=== PATIENT | male | born 1950 | race Caucasian/White ===

== ENCOUNTER 2020-02-28 23:29 | Emergency (ER) | payer MEDICARE, SELFPAY ==
--- NOTE | 2020-02-28 23:20 | ECG_ITS ---
APPROVED REPORT Exam: Resting ECG HR:63 bpm ECG Measurements Heart Rate 63 AXES VT 126 P 76 QRSd 90 QRS 46 QT 386 T 72 QTc 395 Conclusion Sinus rhythm with marked sinus arrhythmia Otherwise normal ECG Electronically signed by : Eduardo Lanza, 03/03/2020 10:23:19
[2020-02-28 23:25] VITALS: BP 154/95; PULSE 68; RESP 16; TEMP 36.8; O2SAT 97; BMI 17.2
--- NOTE | 2020-02-28 23:32 | XR_ITS ---
PROCEDURE: XR CHEST 2V CLINICAL HISTORY: chest pain COMPARISON: CT CT ANGIO CHEST from 02/29/2020 FINDINGS: The cardiomediastinal silhouette and pulmonary vascularity are within normal limits. COPD changes. No lobar consolidation or collapse. Degenerative change thoracic with mild kyphosis IMPRESSION: COPD, no acute finding Dictated by: Randy Granados MD 02/29/2020 06:12 Randy Granados MD in [facility] 02/29/2020 06:12
[2020-02-28 23:44] LABS: Basophils % 0.6 % (0.1-2.0); Eosinophils # 0.1 K/mm3 (0.0-0.4); Eosinophils % 1.5 % (0.1-12.0); Hematocrit 48.4 % (42.0-52.0); Hemoglobin 15.4 g/dL (14.1-18.0); Lymphocytes # 1.8 K/mm3 (0.7-4.5); Lymphocytes % 29.9 % (10-50); Mean Corpuscular HGB Conc 31.7 g/dL (31.8-35.4); Mean Corpuscular Hemoglobin 28.9 pg (27.0-31.2); Mean Corpuscular Volume 91.1 fl (80-94); Mean Platelet Volume 7.8 fl (7.4-10.4); Monocytes # 0.6 K/mm3 (0.1-1.0); Monocytes % 9.4 % (1.7-9.3); Neutrophils # 3.6 K/mm3 (1.8-7.8); Neutrophils % 58.7 % (37.0-80.0); Platelet Count 178 K/mm3 (142-424); Red Blood Count 5.31 M/mm3 (4.60-6.20); Red Cell Distribution Width 12.7 % (11.5-17.5); White Blood Count 6.1 K/mm3 (4.8-10.8)
[2020-02-28 23:48] LABS: Chloride 104 mmol/L (98-107); Sodium 139 mmol/L (136-145)
--- NOTE | 2020-02-28 23:48 | HMH.EDCP ---
ED Disposition Clinical Impression: Atypical chest pain, Tobacco use COPD (chronic obstructive pulmonary disease) Qualifiers: COPD type: unspecified COPD Qualified Code(s): J44.9 - Chronic obstructive pulmonary disease, unspecified Disposition: Home, Self-Care Condition on Discharge: Good Instructions: DI for Atypical Chest Pain Additional Instructions: please follow up with your pcp Referrals: Provider,Referral, [Primary Care Provider] - - Critical Care Critical Care Time: No Attestation: On , the high probability of a clinically significant, sudden or life threatening deterioration of the following system(s) required my full and direct attention, intervention and personal management. The time I documented below is in addition to time spent performing reported procedures but includes the following listed in this critical care notation. Medical Decision Making - Medical Records Medical records reviewed: Yes: I reviewed the patient's medical records. - Todd Inquiry Pt receiving controlled substance: No Vital Signs: 02/28/20 23:25 02/29/20 00:00 02/29/20 00:45 Temperature 98.2 F Temperature Source Oral Pulse Rate [Left Radial] 68 66 72 Respiratory Rate 16 17 16 Blood Pressure [Right Arm] 154/95 H 127/68 143/74 H Blood Pressure Mean [Right Arm] 114 87 97 Blood Pressure Source [Right Arm] Automatic Cuff Automatic Cuff Automatic Cuff Blood Pressure Position [Right Arm] Sitting Supine Sitting 02 Sat by Pulse Oximetry 97 98 98 Oxygen Delivery Method Room Air Room Air Room Air 02/29/20 01:30 02/29/20 02:00 02/29/20 02:30 Temperature Temperature Source Pulse Rate [Left Radial] 69 66 66 Respiratory Rate 16 17 17 Blood Pressure [Right Arm] 132/70 128/75 125/72 Blood Pressure Mean [Right Arm] 90 92 89 Blood Pressure Source [Right Arm] Automatic Cuff Automatic Cuff Automatic Cuff Blood Pressure Position [Right Arm] Sitting Supine Supine 02 Sat by Pulse Oximetry 96 99 98 Oxygen Delivery Method Room Air Room Air Room Air 02/29/20 03:00 02/29/20 03:30 02/29/20 04:00 Temperature Temperature Source Pulse Rate [Left Radial] 66 66 71 Respiratory Rate 18 17 18 Blood Pressure [Right Arm] 119/71 127/71 135/59 L Blood Pressure Mean [Right Arm] 87 89 84 Blood Pressure Source [Right Arm] Automatic Cuff Automatic Cuff Automatic Cuff Blood Pressure Position [Right Arm] Supine Supine Supine 02 Sat by Pulse Oximetry 98 99 98 Oxygen Delivery Method Room Air Room Air Room Air 02/29/20 04:30 02/29/20 05:00 02/29/20 05:30 Temperature Temperature Source Pulse Rate [Left Radial] 68 69 64 Respiratory Rate 17 18 18 Blood Pressure [Right Arm] 99/56 L 94/55 L 108/51 L Blood Pressure Mean [Right Arm] 70 68 70 Blood Pressure Source [Right Arm] Automatic Cuff Automatic Cuff Automatic Cuff Blood Pressure Position [Right Arm] Supine Supine Supine 02 Sat by Pulse Oximetry 98 98 99 Oxygen Delivery Method Room Air Room Air Room Air 02/29/20 06:00 02/29/20 06:30 02/29/20 07:00 Temperature Temperature Source Pulse Rate [Left Radial] 68 57 L 52 L Respiratory Rate 17 Blood Pressure [Right Arm] 100/55 L 116/58 L 114/54 L Blood Pressure Mean [Right Arm] 70 77 74 Blood Pressure Source [Right Arm] Automatic Cuff Automatic Cuff Automatic Cuff Blood Pressure Position [Right Arm] Supine Sitting Sitting 02 Sat by Pulse Oximetry 99 Oxygen Delivery Method Room Air 02/29/20 07:30 Temperature Temperature Source Pulse Rate [Left Radial] 63 Respiratory Rate Blood Pressure [Right Arm] 105/56 L Blood Pressure Mean [Right Arm] 72 Blood Pressure Source [Right Arm] Automatic Cuff Blood Pressure Position [Right Arm] Sitting 02 Sat by Pulse Oximetry Oxygen Delivery Method - Lab Data Lab results reviewed: Yes: I reviewed the patient's lab results. Lab Results 02/28/20 23:15: WBC 6.1, RBC 5.31, Hgb 15.4, Hct 48.4, MCV 91.1, MCH 28.9, MCHC 31.7 L, RDW 12.7, Plt Count 178, MPV 7.8, Neut % (A
[2020-02-28 23:51] LABS: Alanine Aminotransferase 52 U/L (12-78); Albumin Level 4.6 g/dl (3.5-5.0); Albumin/Globulin Ratio 1.3 (1.1-1.8); Alkaline Phosphatase 101 U/L (38-126); Aspartate Amino Transferase 44 U/L (17-59); Bilirubin,Total 0.7 mg/dl (0.2-1.3); Blood Urea Nitrogen 12 mg/dl (9-20); Carbon Dioxide 30 mmol/L (22.0-30.0); Creatinine Clearance Estimated 42 mL/min (50-200); Estimated Glomerular Filt Rate 95 ml/min (>60); GFR (African American) 115 ML/MIN (>60); Globulin 3.6 g/dL (1.3-3.2); Total Protein,Serum 8.2 g/dl (6.3-8.2)
[2020-02-28 23:52] LABS: Calcium 9.6 mg/dl (8.4-10.2); Glucose 100 mg/dl (74-100)
[2020-02-29] VITALS (17 sets, daily range): BP systolic 94–144; BP diastolic 51–75; PULSE 52–88; RESP 16–18; TEMP 36.6; O2SAT 96–99
[2020-02-29 00:06] LABS: Troponin I < 0.01 ng/ml (0.00-0.034)
--- NOTE | 2020-02-29 00:18 | CT_ITS ---
PROCEDURE: CT ANGIO CHEST CLINCIAL INDICATION: Chest Pain Chest pain and shortness of air COMPARISON: No exams were available for comparison TECHNIQUE: IV Contrast: 70ML Isovue 370 Axial images obtained with sagittal and coronal reformats. All CT scans at the facility use one or more dose reduction, viz: automated exposure control, ma/kV adjustment per patient size (including targeted exams where dose is matched to indication, i.e. head), or iterative reconstruction technique. FINDINGS: HEART AND MEDIASTINAL STRUCTURES: No evidence of aortic aneurysm or dissection. Coronary artery calcifications are present. No evidence of pulmonary embolus. LUNGS AND PLEURAL SPACES: Centrilobular emphysema/COPD. Noncalcified pulmonary nodule right lower lobe posteriorly at 5 mm. No lobar consolidation or collapse. There are old right-sided rib fractures. There are degenerative changes in the thoracic spine with thoracic kyphosis. BONY STRUCTURES: Prior cholecystectomy. UPPER ABDOMEN: Unremarkable. ADDITIONAL FINDINGS: No other significant abnormalities. IMPRESSION: No acute finding. No evidence of pulmonary embolus. Centrilobular emphysema. 5 mm noncalcified nodule right lower lobe. Suggest 6 month follow-up in this patient with positive smoking history Dictated by: Randy Granados MD 02/29/2020 06:59 Randy Granados MD in [facility] 02/29/2020 06:59
[2020-02-29 00:54] LABS: Coronavirus 19 IgG Antibody Negative (Negative); Coronavirus 19 IgM Antibody Negative (Negative)
--- NOTE | 2020-02-29 01:22 | PC.NURSE ---
[facility] once [facility] check on bed status.
--- NOTE | 2020-02-29 01:35 | ECG_ITS ---
APPROVED REPORT Exam: Resting ECG HR:63 bpm ECG Measurements Heart Rate 63 AXES MS 142 P 54 QRSd 84 QRS 20 QT 398 T 55 QTc 407 Conclusion Sinus rhythm with blocked premature atrial complexes Otherwise normal ECG Electronically signed by : Eduardo Lanza, 02/29/2020 07:29:30
--- NOTE | 2020-02-29 01:40 | PC.NURSE ---
on the phone with dr. [facility] at this time.
--- NOTE | 2020-02-29 01:56 | PC.NURSE ---
[facility] refused [facility] at this time
--- NOTE | 2020-02-29 01:58 | PC.NURSE ---
[facility] physician states [facility] will only take pt if his trop is positive
--- NOTE | 2020-02-29 01:59 | PC.NURSE ---
[facility] Physician recommends [facility] pt if his trop all come back WNL
[2020-02-29 02:59] LABS: Microscopic, Urine URINE MICROSCOPIC (MICROSCOPIC)
[2020-02-29 03:06] LABS: Appearance,Urine CLEAR (Clear); Bilirubin,Urine Negative (Negative); Blood, Urine Negative (Negative); Color,Urine YELLOW (Yellow); Glucose,Urine (UA) Negative (Negative); Ketones,Urine Negative (Negative); Leukocyte Esterase,Urine Negative (Negative); Nitrate,Urine Negative (Negative); PH,Urine 6.5 (5.0-8.5); Protein,Urine Negative (Negative); Urobilinogen,Urine 0.2 EU/dl (0.2)
[2020-02-29 03:15] LABS: Barbiturates Screen,Urine Negative ng/ml (<200)
[2020-02-29 03:16] LABS: Amphetamine/Metha Screen,Urine Negative ng/ml (<1000); Benzodiazepines Screen,Urine Negative ng/ml (<200)
[2020-02-29 03:17] LABS: Cannabinoid Screen,Urine Negative ng/ml (<50)
[2020-02-29 03:18] LABS: Cocaine Screen,Urine Negative ng/ml (<300); Methadone Screen,Urine Negative ng/ml (<300)
[2020-02-29 03:19] LABS: Opiate Screen,Urine Negative ng/ml (<300); Phencyclidine Screen,Urine Negative ng/ml (<25)
[2020-02-29 03:22] LABS: Bacteria,Urine Trace /lpf; WBC,Urine Occasional #/hpf (0-3)
[2020-02-29 03:41] LABS: Troponin I < 0.01 ng/ml (0.00-0.034)
--- NOTE | 2020-02-29 04:01 | CA_ITS ---
APPROVED REPORT EXAM: Comprehensive 2D, Doppler, and color-flow Echocardiogram Data Librarian: April Love RT(R) Ht: 5 ft 3 in Wt: 97lbs BSA: 1.42 BP: 100/55 mmHg Indications: smoker, CP 2D Dimensions LVOT 1.87 cm (M/F) 1.5-2.5 LVEF (Mora's) 48.20 % M: 52 - 72 LV Volume 79.00 mL M: 62 - 150 LV Volume Index 55.63 mL/m2 M: 34 - 74 M-Mode Dimensions RVDd 2.34 cm (0.9-2.6) LA Diam 3.47 cm (1.9-4.0) LVDd 4.19 cm (3.5-5.7) Ao Diam 3.13 cm (2.0-3.7) LVDs 3.38 cm (3.5-5.7) IVSd 0.77 cm (0.6-1.1) PWd 0.77 cm (0.6-1.1) EF (Teich) 40.10% FS 19.30% EDV (Teich) 78.10 mL ESV (Teich) 46.80 mL LV Diastology E Decel Time 260.00 (160-240 msec) E/A Ratio 0.8 MED E' 8.90 (< 7 cm/sec) E'/MED E' Ratio 7.29 (>14) LAT E' 10.20 (<10 cm/sec) E/LAT E' Ratio 6.36 (>14) Aortic Valve LVOT Max 91.00 (70-110 cm/s) LVOT VTI 23.50 cm AoV Peak Curtis. 123.00 (50-130 cm/s) AO Peak GR. 6.00 mmHg AO Mean GR. 3.20 (<5 mmHg) AO VTI 26.98 (18-25 cm) DAGOBERTO (VTI) 2.39 (2.5-4.5 cm2) Mitral Valve MV E Max Curtis. 65.00 (40-130 cm/s) MV A Velocity 77.00 (40-130 cm/s) E/A Ratio 0.84 MV Decel. Time 260.00 (160-240 ms) MV PHT 76.00 ms Left Ventricle Left atrium is mildly enlarged, left ventricle is normal size, mild concentric left ventricular hypertrophy, visually estimated ejection fraction 55% with no regional wall motion abnormality, grade 1 diastolic dysfunction seen without tissue Doppler evidence of raise left atrial pressure. Right Ventricle Right atrium and right ventricle are normal size and contractility. Aortic Valve Aortic valve is thickened and calcified without Doppler evidence of aortic stenosis or aortic insufficiency. Mitral Valve Mitral valve is grossly normal, there is mild mitral regurgitation. Tricuspid Valve Tricuspid valve is grossly normal, there is mild tricuspid regurgitation, tricuspid regurgitation jet velocity is inadequate for calculation of the right ventricular systolic pressure. Pulmonic Valve Pulmonic valve is poorly visualized. Great Vessels Aortic root is normal size. Pericardium No significant pericardial effusion noted. Conclusion 1. Mildly enlarged left atrium, normal left ventricular size, mild concentric left ventricular hypertrophy, visually estimated ejection fraction 55% with no regional wall motion abnormality, grade 1 diastolic dysfunction seen without tissue Doppler evidence of raise left atrial pressure. 2. Thickened and calcified aortic valve without aortic stenosis or aortic insufficiency. 3. Mild mitral and tricuspid regurgitation. 4. No significant pericardial effusion noted. Electronically signed by : Kris Padgett, 03/01/2020 05:46:30
[2020-02-29 06:25] LABS: Troponin I < 0.01 ng/ml (0.00-0.034)
--- NOTE | 2020-02-29 07:42 | PC.NURSE ---
Radiology at bedside
--- NOTE | 2020-02-29 08:19 | PC.NURSE ---
PT GIVEN BREAKFAST TRAY
--- NOTE | 2020-02-29 08:34 | SW/DCPLANNER ---
SET UP TRANSPORTATION FOR THIS PATIENT TO GET HOME WITH [employer] PA[employer]...
== END 2020-02-29 09:32 | disposition home or self-care (01) ==
PROVIDERS: Emergency Provider Emergency Medicine
DX: R07.89 Other chest pain (principal); J44.9 Chronic obstructive pulmonary disease, unspecified; F17.210 Nicotine dependence, cigarettes, uncomplicated; Z01.84 Encounter for antibody response examination
CPT/HCPCS: 71046; 71275; 80053; 80305; 81001; 84484; 85025; 86328; 93005; 93306; 96365; 96375; 99284; J2405; Q9967

== ENCOUNTER 2021-02-27 10:26 | Emergency (ER) | payer MEDICARE, OTHER, SELFPAY ==
[2021-02-27 10:28] VITALS: BP 138/70; PULSE 89; RESP 16; TEMP 37.4; O2SAT 98; BMI 17.2
--- NOTE | 2021-02-27 13:14 | HMH.EDGENADL ---
ED Disposition Clinical Impression: Abscess of skin or subcutaneous tissue Qualifiers: Site of cutaneous abscess: head Qualified Code(s): L02.811 - Cutaneous abscess of head [any part, except face] Disposition: Home, Self-Care Condition on Discharge: Good Instructions: DI for Skin Abscess Referrals: Provider,Referral, MD [Primary Care Provider] - - Critical Care Critical Care Time: No Attestation: On 02/27/21, the high probability of a clinically significant, sudden or life threatening deterioration of the following system(s) required my full and direct attention, intervention and personal management. The time I documented below is in addition to time spent performing reported procedures but includes the following listed in this critical care notation. Medical Decision Making - Medical Records Medical records reviewed: Yes: I reviewed the patient's medical records. - Todd Inquiry Pt receiving controlled substance: No Vital Signs: 02/27/21 10:28 Temperature 99.4 F Temperature Source Oral Pulse Rate [Radial] 89 Respiratory Rate 16 Blood Pressure [Right Arm] 138/70 Blood Pressure Mean [Right Arm] 92 Blood Pressure Position [Right Arm] Sitting 02 Sat by Pulse Oximetry 98 Oxygen Delivery Method Room Air - Lab Data Lab Results 02/27/21 12:55: WBC 13.7 H, RBC 5.26, Hgb 15.7, Hct 47.0, MCV 89.4, MCH 30.0, MCHC 33.5, RDW 13.4, Plt Count 238, MPV 8.6, Neut % (Auto) 78.7, Lymph % (Auto) 10.1, [place] % (Auto) 8.3, Eos % (Auto) 2.6, Baso % (Auto) 0.3, Neut # (Auto) 10.8 H, Lymph # (Auto) 1.4, [place] # (Auto) 1.1 H, Eos # (Auto) 0.4, Baso # (Auto) 0.0 Result diagrams: 02/27/21 12:55 Orders (Tests/Meds): ED MEDICATIONS Discontinued Medications Generic Name Dose Route Start Last Admin Trade Name Freq PRN Reason Stop Dose Admin Acetaminophen/Codeine Phosphate 1 each 02/27/21 11:48 02/27/21 11:52 Acetaminophen/Codeine #3 Tab PO 02/27/21 11:49 1 each ONCE ONE Administration Ondansetron HCl 4 mg 02/27/21 11:48 02/27/21 11:51 Ondansetron 4mg Odt SL 02/27/21 11:49 4 mg ONCE ONE Administration ORDERS Category Date Time Status Basic Metabolic Panel Stat Lab 02/27/21 12:55 Received Blood Culture Stat Micro 02/27/21 12:55 Received Wound Culture and Gram Stain Stat Micro 02/27/21 12:55 Received Medical Decision Narrative: 71-year-old male with past medical history of agent orange exposure with shortness of breath from this and no daily home medications who presents to the emergency department with soft tissue swelling and drainage on posterior scalp. This has been present for 5 days. On exam, clinically this appears to be an abscess. Patient has no systemic signs or symptoms of illness. Given this, we will obtain basic labs and send 2 blood cultures. Abscess was incised and drained at the bedside and large amount of foul-smelling purulence was expressed. Wound was packed with iodoform gauze and patient was discharged with supplies and instruction to change packing at least once daily. Patient will follow up with his primary care doctor in 5 days for wound recheck. Patient will be discharged on p.o. Bactrim for 5 days. Wound culture and Gram stain were sent to the lab, and patient was advised if his blood cultures were positive he would be called. Discharged in stable condition and amenable to this plan. General Adult HPI - General Chief complaint: Skin/Abscess/Foreign Body Stated complaint: headaches, knot on back of head Time Seen by Provider: 02/27/21 11:00 Mode of Arrival: Ambulatory Limitations: No Limitations Description of Symptoms (Recalled from ER Triage Doc. by RN): TO ED PER PVT CAR WITH C/O ABSCESS TO POSTERIOR SCALP STARTING 02/23 STATES TODAY IT OPENED UP AND STARTED DRAINING. C/O NAUSEA AND STIFF NECK. PT DENIES ANY FEVER, CHILLS, AND PAIN - History of Present Illness HPI narrative: 71-year-old male with past medical history of agent orange exposure
[2021-02-27 13:16] LABS: Basophils % 0.3 % (0.1-2.0); Eosinophils # 0.4 K/mm3 (0.0-0.4); Eosinophils % 2.6 % (0.1-12.0); Hemoglobin 15.7 g/dL (14.1-18.0); Lymphocytes # 1.4 K/mm3 (0.7-4.5); Lymphocytes % 10.1 % (10-50); Mean Corpuscular HGB Conc 33.5 g/dL (31.8-35.4); Mean Corpuscular Volume 89.4 fl (80-94); Mean Platelet Volume 8.6 fl (7.4-10.4); Monocytes # 1.1 K/mm3 (0.1-1.0); Monocytes % 8.3 % (1.7-9.3); Neutrophils # 10.8 K/mm3 (1.8-7.8); Neutrophils % 78.7 % (37.0-80.0); Platelet Count 238 K/mm3 (142-424); Red Blood Count 5.26 M/mm3 (4.60-6.20); Red Cell Distribution Width 13.4 % (11.5-17.5); White Blood Count 13.7 K/mm3 (4.8-10.8)
[2021-02-27 13:17] LABS: Chloride 98 mmol/L (98-107); Potassium 4.8 mmoL/L (3.5-5.1); Sodium 138 mmol/L (136-145)
[2021-02-27 13:20] LABS: Anion Gap 14.8 mEq/L (5-15); Blood Urea Nitrogen 14 mg/dl (9-20); Carbon Dioxide 30 mmol/L (22.0-30.0); Creatinine Clearance Estimated 42 mL/min (50-200); Estimated Glomerular Filt Rate 111 ml/min (>60); GFR (African American) 134 ML/MIN (>60)
[2021-02-27 13:21] LABS: Calcium 9.9 mg/dl (8.4-10.2); Glucose 113 mg/dl (74-100)
--- NOTE | 2021-02-27 14:22 | SW/DCPLANNER ---
SET UP TRANSPORTATION WITH [facility] TO TAKE THIS PATIENT HOME....
[2021-02-27 14:34] VITALS: BP 153/65; PULSE 78; RESP 18; TEMP 36.6; O2SAT 98
== END 2021-02-27 14:36 | disposition home or self-care (01) ==
PROVIDERS: Emergency Provider Emergency Medicine
DX: L02.811 Cutaneous abscess of head [any part, except face] (principal)
CPT/HCPCS: 10060; 80048; 85025; 87040; 87070; 87077; 87186; 87205; 99283

== ENCOUNTER 2021-08-24 16:28 | Inpatient (IN) | payer MEDICARE, OTHER, SELFPAY ==
[2021-08-24] VITALS (13 sets, daily range): BP systolic 91–154; BP diastolic 48–74; PULSE 48–70; RESP 14–18; TEMP 36.5–36.6; O2SAT 96–100; BMI 17.2; BMI 17.6
--- NOTE | 2021-08-24 | IR_ITS ---
APPROVED REPORT Patient Location: Emergent Computer Systems Technician: NORM Groves RT (R) PROCEDURES Left heart catheterization Left ventriculogram Selective coronary angiogram Drug-eluting stent deployment to the proximal LAD INDICATION Acute coronary syndrome, Coronary artery disease Informed consent was obtained prior to the procedure. COMPLICATIONS None Estimated Blood Loss: Less than 10 mls TECHNIQUE One percent lidocaine used to anesthetize the right anterior aspect of the wrist. The right radial artery was accessed via the Seldinger technique. A 6 Taiwanese sheath was placed in the right radial artery. 2.5 mg of verapamil, 800 mcg of nitroglycerin, 1mg Lidocaine and 5000 U Heparin were given through the arterial sheath. The papa catheter was also used to perform selective coronary angiogram. After the selective coronary angiogram therapeutic heparin was administered giving a therapeutic ACT and the guide catheter was placed in the left main artery followed by a Choice PT extra-support wire being placed on the LAD. A 3 mm x 26 mm resolute [place] stent was deployed at 20 and then 24 joelle reducing the stenosis. Following this a 3.5 x 12 mm balloon was placed in the stenotic area and deployed at 24 joelle further reducing it but still to an unsatisfactory result. Following this a 3.75 x 8 mm balloon was deployed at 24 joelle further reducing and post dilating the stenosis. At the end of the procedure ELIESER-3 flow was present with ELIESER II flow being present at the beginning of the procedure. After achieving excellent angiographic results the apparatus was removed the sheath was removed and hemostasis was achieved using TR banding patient was transferred to the postop holding area in stable condition ANGIOGRAPHIC RESULTS The left main artery Normal The left anterior descending artery Proximal 30% stenosis followed by a hazy 50% stenosis which extends distal to the first septal financial aid yet proximal to the first diagonal artery making this a proximal LAD lesion. This is a 15 mm concentric stenosis. The LAD is accompanied by ELIESER II flow The circumflex artery Is proximally normal followed by a mid vessel 30 to 40% sequential stenosis. An additional 30 to 40% stenosis is present into the proximal aspect of the large terminal obtuse marginal artery The right coronary artery Is a dominant vessel and has proximal 20 to 30% stenosis with a mid vessel 30 to 40% calcified eccentric stenosis. Distally there is an additional eccentric 30 to 40% stenosis. The right coronary gives rise to a large PDA and PLVB which are both widely patent The BROWNE ventriculogram reveals Normal 65% The left ventricular end-diastolic pressure [address] segment changes consistent with acute coronary syndrome and possibly a borderline ST elevation myocardial infarction. Given patient's dynamic EKG changes with ongoing chest pain which was actually accelerating during patient's time in the emergency department, it was decided to take patient directly to the [facility] for intervention. ELIESER II/slow flow down a large LAD from a proximal 50% hazy stenosis Successful percutaneous revascularization of the proximal to mid LAD hemodynamically severe disease reduced to 10% with 1 drug-eluting stent improving ELIESER II to ELIESER-3 flow Persistent moderate stenosis throughout the right coronary artery and circumflex artery as described above Normal ejection fraction Moderately elevated LVEDP PLAN 1. Dual antiplatelet therapy 2. LDL less than 55 to be achieved with high intensity statin 3. LYNDSAY inhibitor's beta-blockers once hemodynamic support usage 4. Avoidance of tobacco products 5. Risk factor modification 6. Card
--- NOTE | 2021-08-24 16:30 | XR_ITS ---
PROCEDURE INFORMATION: Exam: XR Chest Exam date and time: 08/24/2021 4:33 PM Age: 71 years old Clinical indication: Pain; Chest pressure; Additional info: Chest pain TECHNIQUE: Imaging protocol: XR of the chest. Portable AP upright exam 4:34 p.m. Views: 1 view. COMPARISON: CR XR CHEST 2V 02/28/2020 11:37 PM FINDINGS: Tubes, catheters and devices: Overlying hospital monitor electrodes. Lungs: No acute pulmonary findings. No pulmonary consolidation. Lung volumes within normal limits. Pleural spaces: Unremarkable. No significant pleural effusion. No pneumothorax. Heart/Mediastinum: The cardiac silhouette is normal. Vasculature: Calcified plaques in the aortic arch. Bones/joints: There are spinal degenerative changes, with multilevel disc narrrowing and spondylosis. Organs: Surgical clips in the right upper quadrant abdomen, correlate for history of cholecystectomy. IMPRESSION: No acute findings.
[2021-08-24 16:46] LABS: Basophils # 0.1 K/mm3 (0-0.2); Basophils % 1.5 % (0.1-2.0); Eosinophils # 0.2 K/mm3 (0.0-0.4); Eosinophils % 3.4 % (0.1-12.0); Hematocrit 41.6 % (42.0-52.0); Lymphocytes # 1.2 K/mm3 (0.7-4.5); Lymphocytes % 22.6 % (10-50); Mean Corpuscular HGB Conc 33.7 g/dL (31.8-35.4); Mean Corpuscular Hemoglobin 30.8 pg (27.0-31.2); Mean Corpuscular Volume 91.6 fl (80-94); Mean Platelet Volume 9.1 fl (7.4-10.4); Monocytes # 0.5 K/mm3 (0.1-1.0); Monocytes % 10.1 % (1.7-9.3); Neutrophils # 3.3 K/mm3 (1.8-7.8); Neutrophils % 62.5 % (37.0-80.0); Platelet Count 156 K/mm3 (142-424); Red Blood Count 4.54 M/mm3 (4.60-6.20); Red Cell Distribution Width 13.9 % (11.5-17.5); White Blood Count 5.2 K/mm3 (4.8-10.8)
[2021-08-24 16:55] LABS: Chloride 104 mmol/L (98-107); Sodium 139 mmol/L (136-145)
[2021-08-24 16:56] LABS: Potassium 3.7 mmoL/L (3.5-5.1)
[2021-08-24 16:59] LABS: Anion Gap 7.7 mEq/L (5-15); Blood Urea Nitrogen 14 mg/dl (9-20); Calcium 8.8 mg/dl (8.4-10.2); Carbon Dioxide 31 mmol/L (22.0-30.0); Creatinine Clearance Estimated 43 mL/min (50-200); Estimated Glomerular Filt Rate 95 ml/min (>60); GFR (African American) 115 ML/MIN (>60); Glucose 110 mg/dl (74-100)
[2021-08-24 17:13] LABS: Troponin I < 0.01 ng/ml (0.00-0.034)
[2021-08-24 17:14] LABS: D-Dimer 0.55 ug/mL (0.0-0.5)
--- NOTE | 2021-08-24 17:33 | HMH.EDGENADL ---
ED Disposition Clinical Impression: Unstable angina, Chest pain Disposition: Admitted as Observation Condition on Discharge: Good Referrals: Provider,Referral, [Primary Care Provider] - - Critical Care Critical Care Time: No Attestation: On 08/24/21, the high probability of a clinically significant, sudden or life threatening deterioration of the following system(s) required my full and direct attention, intervention and personal management. The time I documented below is in addition to time spent performing reported procedures but includes the following listed in this critical care notation. Medical Decision Making - Todd Inquiry Pt receiving controlled substance: No Vital Signs: 08/24/21 16:28 08/24/21 17:00 08/24/21 17:30 Temperature 98 F Temperature Source Oral Pulse Rate 62 58 L Pulse Rate [Radial] 60 Respiratory Rate 16 14 18 Blood Pressure 138/66 137/54 L Blood Pressure [Right Arm] 154/74 H Blood Pressure Mean 90 89 Blood Pressure Mean [Right Arm] 100 Blood Pressure Position Blood Pressure Position [Right Arm] Sitting 02 Sat by Pulse Oximetry 98 98 100 Oxygen Delivery Method Room Air 08/24/21 17:41 Temperature Temperature Source Pulse Rate 48 L Pulse Rate [Radial] Respiratory Rate Blood Pressure 119/57 L Blood Pressure [Right Arm] Blood Pressure Mean Blood Pressure Mean [Right Arm] Blood Pressure Position Sitting Blood Pressure Position [Right Arm] 02 Sat by Pulse Oximetry 97 Oxygen Delivery Method Room Air - Lab Data Lab Results 08/24/21 16:35: WBC 5.2, RBC 4.54 L, Hgb 14.0 L, Hct 41.6 L, MCV 91.6, MCH 30.8, MCHC 33.7, RDW 13.9, Plt Count 156, MPV 9.1, Neut % (Auto) 62.5, Lymph % (Auto) 22.6, Gem % (Auto) 10.1 H, Eos % (Auto) 3.4, Baso % (Auto) 1.5, Neut # (Auto) 3.3, Lymph # (Auto) 1.2, Gem # (Auto) 0.5, Eos # (Auto) 0.2, Baso # (Auto) 0.1 08/24/21 16:35: Sodium 139, Potassium 3.7, Chloride 104, Carbon Dioxide 31 H, Anion Gap 7.7, BUN 14, Creatinine 0.80, Estimated Creat Clear 43, Estimated GFR 95, Est GFR ( Amer) 115, Glucose 110 H, Calcium 8.8, Troponin I < 0.01 08/24/21 16:35: D-Dimer 0.55 H 08/24/21 19:30: Troponin I < 0.01 08/24/21 19:41: PT 13.1 H, INR 1.17 H Result diagrams: 08/24/21 16:35 08/24/21 16:35 Orders (Tests/Meds): ED MEDICATIONS Generic Name Dose Route Start Last Admin Trade Name Freq PRN Reason Stop Dose Admin Heparin Sodium/Dextrose 500 mls @ 20 mls/hr 08/24/21 21:00 08/24/21 20:47 Heparin 25,000 Units In D5w 500ml Premix IV 09/23/21 20:59 20 mls/hr .Q25H SIMIN Administration 1,000 UNITS/HR Discontinued Medications Generic Name Dose Route Start Last Admin Trade Name Freq PRN Reason Stop Dose Admin Heparin Sodium (Porcine) 2,700 unit 08/24/21 20:45 08/24/21 20:46 Heparin Sodium 5,000 Unit/Ml Vial IV 08/24/21 20:46 2,700 unit ONCE ONE Administration Morphine Sulfate 4 mg 08/24/21 18:38 08/24/21 18:38 Morphine 2mg/Ml Syringe IV 08/24/21 18:39 4 mg ONCE ONE Administration Nitroglycerin 0.4 mg 08/24/21 17:20 08/24/21 17:44 Nitroglycerin 0.4mg Sl Tablet SL 08/24/21 17:21 0.4 mg ONCE ONE Administration Nitroglycerin 1 gm 08/24/21 19:24 08/24/21 19:24 Nitroglycerin 1 Gm Ointment TD 08/24/21 19:25 1 gm ONCE ONE Administration Ticagrelor 180 mg 08/24/21 19:24 08/24/21 19:25 Ticagrelor 90mg Tablet PO 08/24/21 19:25 180 mg ONCE ONE Administration ORDERS Category Date Time Status Heparin drip PTT [PTT Heparin (inpatient only)] Routine Lab 08/25/21 03:00 Ordered Troponin I Q3H Lab 08/24/21 22:30 Ordered Medical Decision Narrative: Differential diagnosis includes but is not limited to STEMI, NSTEMI, unstable angina, arrhythmia, PE. Considered acute thoracic aortic dissection however less likely without pain radiating to the back, without focal neurological symptoms. Patient is awake, alert, no acute distress. hemodynamically stabl
--- NOTE | 2021-08-24 18:17 | PC.NURSE ---
pt states chest pain is worse
--- NOTE | 2021-08-24 19:05 | PC.NURSE ---
cardiology paged for ED doctor
--- NOTE | 2021-08-24 19:06 | PC.NURSE ---
Dr. Choudhury on phone with ER doctor
--- NOTE | 2021-08-24 19:23 | ECG_ITS ---
APPROVED REPORT Exam: Resting ECG HR:57 bpm ECG Measurements Heart Rate 57 AXES FL 112 P 0 QRSd 93 QRS 22 QT 401 T 58 QTc 396 Conclusion SINUS BRADYCARDIA WITH SHORT FL INTERVAL WITH OCCASIONAL SUPRAVENTRICULAR PREMATURE COMPLEXES New ST elevation in Inferior leads compared to 2019 ecg BORDERLINE ECG UNCONFIRMED REPORT Electronically signed by : Eduardo Lanza MD 08/25/2021 09:50:08
--- NOTE | 2021-08-24 19:34 | PC.NURSE ---
spoke with who ordered a heparin drip for patient per nstemi protocol. PT/INR ordered per protocol.
[2021-08-24 19:58] LABS: Troponin I < 0.01 ng/ml (0.00-0.034)
[2021-08-24 20:17] LABS: INR 1.17 (0.9-1.1); Prothrombin Time 13.1 seconds (10.1-12.5)
--- NOTE | 2021-08-24 20:48 | PC.NURSE ---
Consulted [facility] with [facility] to verify heparin drip dosing per nstemi protocol as ordered by per request. Dosing of 2700u bolus followed by 1000 u/hr verified with betsey arreguin rn.
--- NOTE | 2021-08-24 21:05 | PC.NURSE ---
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
--- NOTE | 2021-08-24 21:52 | PC.NURSE ---
[facility], spoke with [facility] who stated there were no rooms available so transfer was not initiated so paper work was not started. Transfer office will reach out on Friday to discuss payment
--- NOTE | 2021-08-24 22:12 | PC.NURSE ---
Dr. Lanza paged for admission
--- NOTE | 2021-08-24 22:16 | PC.NURSE ---
house notified of need for bed, patient being admitted by Dr. Lanza for unstable angina from the [facility]orer [facility]
[2021-08-24 22:33] LABS: CATHL Activated Clotting Time > 400 SEC (74-125)
[2021-08-24 22:34] LABS: CATHL Activated Clotting Time 163 SEC (74-125)
--- NOTE | 2021-08-24 22:57 | PC.NURSE ---
patient up to floor from CathLab @ this time.
[2021-08-25] VITALS (14 sets, daily range): BP systolic 91–130; BP diastolic 43–81; PULSE 50–86; RESP 16–20; TEMP 36.5–37.1; O2SAT 96–99
--- NOTE | 2021-08-25 05:13 | PC.NURSE ---
Pt denies any CP. (R) radial cath site with 2x2 and tegaderm is C/D/I. No drainage noted at this time. VSS. Pt sinus on telemetry with slight st elevation as described during report from Akash Castillo RN from [facility] [place]. MD aware. No other concerns at this time.
[2021-08-25 06:21] LABS: Basophils % 0.8 % (0.1-2.0); Eosinophils # 0.2 K/mm3 (0.0-0.4); Eosinophils % 3.7 % (0.1-12.0); Hematocrit 40.9 % (42.0-52.0); Hemoglobin 13.5 g/dL (14.1-18.0); Lymphocytes % 19.2 % (10-50); Mean Corpuscular HGB Conc 33.1 g/dL (31.8-35.4); Mean Corpuscular Hemoglobin 30.2 pg (27.0-31.2); Mean Corpuscular Volume 91.2 fl (80-94); Mean Platelet Volume 8.6 fl (7.4-10.4); Monocytes # 0.5 K/mm3 (0.1-1.0); Monocytes % 9.5 % (1.7-9.3); Neutrophils # 3.5 K/mm3 (1.8-7.8); Neutrophils % 66.7 % (37.0-80.0); Platelet Count 136 K/mm3 (142-424); Red Blood Count 4.48 M/mm3 (4.60-6.20); White Blood Count 5.2 K/mm3 (4.8-10.8)
[2021-08-25 06:27] LABS: Anion Gap 8.6 mEq/L (5-15); Blood Urea Nitrogen 13 mg/dl (9-20); Calcium 8.3 mg/dl (8.4-10.2); Carbon Dioxide 26 mmol/L (22.0-30.0); Chloride 105 mmol/L (98-107); Creatinine Clearance Estimated 43 mL/min (50-200); Estimated Glomerular Filt Rate 111 ml/min (>60); GFR (African American) 134 ML/MIN (>60); Glucose 87 mg/dl (74-100); Potassium 3.6 mmoL/L (3.5-5.1); Sodium 136 mmol/L (136-145)
--- NOTE | 2021-08-25 07:44 | P.CONPHA_ITS ---
[facility] Pharmacy VTE Monitoring - Patient Demographics Admission date: 08/24/21 Report Date: 08/25/21 Time: 07:44 Allergies/Adverse Reactions: Patient Allergies No Known Allergies Allergy (Verified 02/28/20 23:31) Height: 1.63 m Weight: 45.359 kg Patient Problems: Current Active Problems Unstable angina (Acute) Chest pain (Acute) - VTE Risk Labs: VTE Related Lab Results Hgb 13.5 g/dL (14.1-18.0) L 08/25/21 05:53 Hct 40.9 % (42.0-52.0) L 08/25/21 05:53 Plt Count 136 K/mm3 (142-424) L 08/25/21 05:53 PT 13.1 seconds (10.1-12.5) H 08/24/21 19:41 INR 1.17 (0.9-1.1) H 08/24/21 19:41 BUN 13 mg/dl (9-20) 08/25/21 05:53 Creatinine 0.70 mg/dl (0.66-1.25) 08/25/21 05:53 Estimated Creat Clear 43 mL/min (50-200) 08/25/21 05:53 VTE Risk Level: Moderate Risk - Prophylaxis VTE Prophylaxis Ordered?: Yes Types of VTE Prophylaxis: TEDS Knee High Location of Applied Device: Bilateral Lower Extremeties
--- NOTE | 2021-08-25 08:45 | HMH.HP ---
*Admission Date: 08/24/21 *Chief complaint: Chest pain *History of present illness: 71-year-old white male who receives his medical care at the [facility] but takes no medications, had chest pain off and on over the past 48 hours but he noticed the day of admission it did not resolve it had the day before and came to the emergency department In the ER troponins were negative but EKG showed some dynamic ST changes and patient was taken to Social Service Worker. Report from Social Service Worker noted below: ANGIOGRAPHIC RESULTS The left main artery Normal The left anterior descending artery Proximal 30% stenosis followed by a hazy 50% stenosis which extends distal to the first septal skiver hand yet proximal to the first diagonal artery making this a proximal LAD lesion. This is a 15 mm concentric stenosis. The LAD is accompanied by ELIESER II flow The circumflex artery Is proximally normal followed by a mid vessel 30 to 40% sequential stenosis. An additional 30 to 40% stenosis is present into the proximal aspect of the large terminal obtuse marginal artery The right coronary artery Is a dominant vessel and has proximal 20 to 30% stenosis with a mid vessel 30 to 40% calcified eccentric stenosis. Distally there is an additional eccentric 30 to 40% stenosis. The right coronary gives rise to a large PDA and PLVB which are both widely patent The BROWNE ventriculogram reveals Normal 65% The left ventricular end-diastolic pressure [address] segment changes consistent with acute coronary syndrome and possibly a borderline ST elevation myocardial infarction. Given patient's dynamic EKG changes with ongoing chest pain which was actually accelerating during patient's time in the emergency department, it was decided to take patient directly to the Social Service Worker for intervention. ELIESER II/slow flow down a large LAD from a proximal 50% hazy stenosis Successful percutaneous revascularization of the proximal to mid LAD hemodynamically severe disease reduced to 10% with 1 drug-eluting stent improving ELIESER II to ELIESER-3 flow Persistent moderate stenosis throughout the right coronary artery and circumflex artery as described above Normal ejection fraction Moderately elevated LVEDP PLAN 1. Dual antiplatelet therapy 2. LDL less than 55 to be achieved with high intensity statin 3. LYNDSAY inhibitor's beta-blockers once hemodynamic support usage 4. Avoidance of tobacco products 5. Risk factor modification 6. Cardiac rehabilitation Electronically signed by : Danilo Choudhury MD 08/24/2021 22:23:31 [facility] History Medical History: Reports:: Coronary Artery Disease Denies:: Diabetes Mellitus Type 1, Diabetes Mellitus Type 2 *Have you ever received a pneumonia vaccine?: No *Have you received a flu vaccine this season?: No Other Surgeries: Yes: No Previous Surgery, Cardiac Catheterization, Cholecystectomy - *Social History Smoking Status: Current every day smoker Tobacco Type: cigarettes # Packs/Day (cigarettes): 1 (Patient smokes 2 to 3 cigarettes daily) Alcohol Intake: former Alcohol Intake Frequency:: other *Occupational Status:: retired (Retired from the [employer]) *Travel in the last 8 weeks: None Comment: [place] [facility], 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 He has been for 6 years. Has good support from his neighbors and children who live in [facility]. Family Hx:: No significant family history, Cancer, Coronary Artery Disease, Diabetes, Heart Attack Review of Systems - Review of Systems Review of systems:: pertinent systems reviewed and negative unless documented below Meds Home Medications Medication Instructions Recorded Confirmed Type No Known Home Medications 08/25/21 08/25/21 History Allergies Allergy/AdvReac Type Severity Reaction Status Date / Time No Known Allergies Allergy Verified 02/28/20 23:31
--- NOTE | 2021-08-25 18:14 | PC.NURSE ---
pt has had no acute changes. no c/o chest pain. he has ambulated independently in his room and to the bathroom. VSS. Small amount of blood noted to right radial cath site dressing this morning, and outlined for observation. No changes.
[2021-08-26] VITALS: BP 120/66; PULSE 50; PULSE 62; RESP 16; TEMP 36.6; O2SAT 96
[2021-08-26 04:00] VITALS: BP 127/67; PULSE 60; PULSE 61; RESP 16; TEMP 36.6; O2SAT 96
[2021-08-26 05:56] VITALS: BMI 19.7
[2021-08-26 08:00] VITALS: BP 138/81; PULSE 72; PULSE 78; RESP 20; TEMP 36.8; O2SAT 97
--- NOTE | 2021-08-26 08:25 | HMH.DCSUM ---
General - General Admission date:: 08/24/21 Discharge date: 08/26/21 HPI HPI: 71-year-old white male who receives his medical care at the [facility] but takes no medications, had chest pain off and on over the past 48 hours but he noticed the day of admission it did not resolve it had the day before and came to the emergency department In the ER troponins were negative but EKG showed some dynamic ST changes and patient was taken to [facility]. Report from [facility] noted below: ANGIOGRAPHIC RESULTS The left main artery Normal The left anterior descending artery Proximal 30% stenosis followed by a hazy 50% stenosis which extends distal to the first septal medical coding specialist yet proximal to the first diagonal artery making this a proximal LAD lesion. This is a 15 mm concentric stenosis. The LAD is accompanied by ELIESER II flow The circumflex artery Is proximally normal followed by a mid vessel 30 to 40% sequential stenosis. An additional 30 to 40% stenosis is present into the proximal aspect of the large terminal obtuse marginal artery The right coronary artery Is a dominant vessel and has proximal 20 to 30% stenosis with a mid vessel 30 to 40% calcified eccentric stenosis. Distally there is an additional eccentric 30 to 40% stenosis. The right coronary gives rise to a large PDA and PLVB which are both widely patent The BROWNE ventriculogram reveals Normal 65% The left ventricular end-diastolic pressure [address] segment changes consistent with acute coronary syndrome and possibly a borderline ST elevation myocardial infarction. Given patient's dynamic EKG changes with ongoing chest pain which was actually accelerating during patient's time in the emergency department, it was decided to take patient directly to the [facility] for intervention. ELIESER II/slow flow down a large LAD from a proximal 50% hazy stenosis Successful percutaneous revascularization of the proximal to mid LAD hemodynamically severe disease reduced to 10% with 1 drug-eluting stent improving ELIESER II to ELIESER-3 flow Persistent moderate stenosis throughout the right coronary artery and circumflex artery as described above Normal ejection fraction Moderately elevated LVEDP PLAN 1. Dual antiplatelet therapy 2. LDL less than 55 to be achieved with high intensity statin 3. LYNDSAY inhibitor's beta-blockers once hemodynamic support usage 4. Avoidance of tobacco products 5. Risk factor modification 6. Cardiac rehabilitation Electronically signed by : Danilo Choudhury MD 08/24/2021 22:23:31 Hospital Course Hospital Course: Patient tolerated heart cath procedure well as noted above. Over the next couple of days was asymptomatic. This morning feels well, eating well, has been walking around the room with no problems, telemetry monitoring has been normal. Patient will be discharged home today. He will be discharged on DAPT, low-dose lisinopril now that his blood pressure is better and high intensity statins. He has quite a lot of social drivers that limit his access to healthcare, such as lack of the vehicle and family support, we will try to reach out to social media editor after the holiday weekend. We will send medications to [facility] that can be picked up tomorrow for him. Will make an appoint with cardiology for next week Objective Vital signs: Temp Pulse Resp BP Pulse Ox 97.9 F 61 16 127/67 96 08/26/21 04:00 08/26/21 04:00 08/26/21 04:00 08/26/21 04:00 08/26/21 04:00 no acute distress - *Routine HEENT Exam Head: Present: normocephalic Eye: Present: EOMI, PERRL ENT: Present: mucous membranes moist - *Routine Neck Exam Present: supple - *Routine Respiratory Exam Present: CTA bilaterally - *Routine Cardiovascular Exam Present: RRR - *Routine Abdominal Exam Present: soft, normoactive bowel sounds. Absent: tenderness - *Routine Extremities Exam Absent: cyanosis, clubbing, edema - *Routine Skin Exa
--- NOTE | 2021-08-26 08:49 | HMH.PHACLD ---
Shay Andria has received discharge medication counseling on the following medications: PLAVIX LISINOPRIL ATORVASTATIN ASPIRIN ALL PRESCRIPTIONS ARE NEW AND WERE SENT TO [facility] IN [place]. HOLDING BETA EVER AT THIS TIME. WILL BE ADDRESSED AN OUTPATIENT. PATIENT VERBALIZED UNDERSTANDING AND HAD NO QUESTIONS AT THIS TIME. -MARICEL STODDARD, YEND
--- NOTE | 2021-08-29 14:28 | CARE MANAGER ---
Unable to reach patient to discuss post discharge status. Phone number in chart are incorrect.
== END 2021-08-26 11:31 | disposition home or self-care (01) | DRG 247 ==
LOC: ER 21:14 → CATHLAB 22:19 → 2ND 22:54
PROVIDERS: Admitting Provider Internal Medicine Adolescent Medicine; Emergency Provider Student in an Organized Health Care Education/Training Program; Referring Provider Internal Medicine; Visit Provider Internal Medicine Adolescent Medicine
PROC: 027034Z Dilation of Coronary Artery, One Artery with Drug-eluting Intraluminal Device, Percutaneous Approach (ICD-10-PCS; principal; 2021-08-24 21:20)
DX: I25.110 Atherosclerotic heart disease of native coronary artery with unstable angina pectoris (principal); F17.210 Nicotine dependence, cigarettes, uncomplicated
CPT/HCPCS: 36415; 71045; 80048; 84484; 85025; 85347; 85378; 85610; 92928; 93005; 93458; 99152; 99153; 99285; C1725; C1769; C1876; C9600; J1644; Q9967

== ENCOUNTER 2021-09-22 16:35 | Inpatient (IN) | payer MEDICARE, OTHER, SELFPAY ==
[2021-09-22] VITALS (8 sets, daily range): BP systolic 103–138; BP diastolic 60–80; PULSE 68–78; RESP 13–22; TEMP 36.6–37.1; O2SAT 96–99; BMI 17.2; BMI 17.6
--- NOTE | 2021-09-22 16:38 | ECG_ITS ---
APPROVED REPORT Exam: Resting ECG HR:68 bpm ECG Measurements Heart Rate 68 AXES PA 131 P 64 QRSd 85 QRS 16 QT 368 T 52 QTc 386 Conclusion SINUS RHYTHM WITH SINUS ARRHYTHMIA NORMAL ECG UNCONFIRMED REPORT Electronically signed by : Eduardo Lanza MD 09/24/2021 21:48:48
--- NOTE | 2021-09-22 16:38 | XR_ITS ---
PROCEDURE INFORMATION: Exam: XR Chest Exam date and time: 09/22/2021 4:49 PM Age: 71 years old Clinical indication: Shortness of breath and other: Weakness; Additional info: Chest pain, gen weakness TECHNIQUE: Imaging protocol: Radiologic exam of the chest. Views: 1 view. Portable AP exam 5:02 p.m. COMPARISON: CR XR CHEST PORTABLE 08/24/2021 4:33 PM FINDINGS: Tubes, catheters and devices: Overlying residential monitor electrodes. Lungs: No acute pulmonary findings. No pulmonary consolidation. Lung volumes within normal limits. Pulmonary vessels do not appear congested. Pleural spaces: Unremarkable. No significant pleural effusion. No pneumothorax. Heart/Mediastinum: The cardiac silhouette is normal. Vasculature: Calcified plaques in the aortic arch. Bones/joints: Osteopenia. Spinal degenerative changes. Some chronic appearing bilateral rib deformities, consistent with old healed fractures. IMPRESSION: No acute findings.
[2021-09-22 16:57] LABS: Basophils # 0.1 K/mm3 (0-0.2); Basophils % 1.4 % (0.1-2.0); Eosinophils # 0.2 K/mm3 (0.0-0.4); Eosinophils % 3.6 % (0.1-12.0); Hemoglobin 15.4 g/dL (14.1-18.0); Lymphocytes # 1.4 K/mm3 (0.7-4.5); Lymphocytes % 21.3 % (10-50); Mean Corpuscular Hemoglobin 30.1 pg (27.0-31.2); Mean Corpuscular Volume 93.8 fl (80-94); Mean Platelet Volume 8.9 fl (7.4-10.4); Monocytes # 0.7 K/mm3 (0.1-1.0); Monocytes % 10.6 % (1.7-9.3); Neutrophils # 4.2 K/mm3 (1.8-7.8); Neutrophils % 63.2 % (37.0-80.0); Platelet Count 214 K/mm3 (142-424); Red Blood Count 5.12 M/mm3 (4.60-6.20); Red Cell Distribution Width 13.6 % (11.5-17.5); White Blood Count 6.7 K/mm3 (4.8-10.8)
--- NOTE | 2021-09-22 17:05 | PC.NURSE ---
Pt cleaned/bathed, bed sheets changed and fresh gown and blankets placed on pt.
[2021-09-22 17:06] LABS: Anion Gap 12.4 mEq/L (5-15); Blood Urea Nitrogen 25 mg/dl (9-20); Calcium 9.6 mg/dl (8.4-10.2); Carbon Dioxide 27 mmol/L (22.0-30.0); Chloride 104 mmol/L (98-107); Creatinine Clearance Estimated 43 mL/min (50-200); Estimated Glomerular Filt Rate 95 ml/min (>60); GFR (African American) 115 ML/MIN (>60); Glucose 102 mg/dl (74-100); Potassium 4.4 mmoL/L (3.5-5.1); Sodium 139 mmol/L (136-145)
[2021-09-22 17:07] LABS: Coronavirus 19, PCR Not Detected (NotDetected); Influenza A, PCR Not Detected (NotDetected); Influenza B, PCR Not Detected (NotDetected)
[2021-09-22 17:21] LABS: Troponin I 0.21 ng/ml (0.00-0.034)
--- NOTE | 2021-09-22 17:28 | HMH.EDCP ---
ED Disposition Clinical Impression: Unstable angina, Elevated troponin, Tobacco use Disposition: Admitted As Inpatient Condition on Discharge: Good Referrals: Provider,Referral, [Primary Care Provider] - - Critical Care Critical Care Time: No Attestation: On 09/22/21, the high probability of a clinically significant, sudden or life threatening deterioration of the following system(s) required my full and direct attention, intervention and personal management. The time I documented below is in addition to time spent performing reported procedures but includes the following listed in this critical care notation. Medical Decision Making - Medical Records Medical records reviewed: Yes: I reviewed the patient's medical records. - Todd Inquiry Pt receiving controlled substance: No Vital Signs: 09/22/21 16:36 09/22/21 16:45 Temperature 98.8 F Temperature Source Oral Pulse Rate 72 Pulse Rate [Radial] 74 Respiratory Rate 20 13 Blood Pressure [Right Arm] 128/71 Blood Pressure Mean [Right Arm] 90 Blood Pressure Position [Right Arm] Sitting 02 Sat by Pulse Oximetry 98 99 Oxygen Delivery Method Room Air - Lab Data Lab results reviewed: Yes: I reviewed the patient's lab results. Lab Results 09/22/21 16:45: WBC 6.7, RBC 5.12, Hgb 15.4, Hct 48.0, MCV 93.8, MCH 30.1, MCHC 32.0, RDW 13.6, Plt Count 214, MPV 8.9, Neut % (Auto) 63.2, Lymph % (Auto) 21.3, [place] % (Auto) 10.6 H, Eos % (Auto) 3.6, Baso % (Auto) 1.4, Neut # (Auto) 4.2, Lymph # (Auto) 1.4, [place] # (Auto) 0.7, Eos # (Auto) 0.2, Baso # (Auto) 0.1 09/22/21 16:45: Sodium 139, Potassium 4.4, Chloride 104, Carbon Dioxide 27, Anion Gap 12.4, BUN 25 H, Creatinine 0.80, Estimated Creat Clear 43, Estimated GFR 95, Est GFR ( Amer) 115, Glucose 102 H, Calcium 9.6, Troponin I 0.21 H 09/22/21 17:00: SARS-CoV-2 (PCR) Not detected, Influenza A Untype (PCR) Not detected, Influenza Type B (PCR) Not detected Result diagrams: 09/22/21 16:45 09/22/21 16:45 Orders (Tests/Meds): ED MEDICATIONS Generic Name Dose Route Start Last Admin Trade Name Freq PRN Reason Stop Dose Admin Enoxaparin Sodium 45 mg 09/22/21 17:45 Enoxaparin 100mg/Ml Syringe SQ 10/22/21 17:44 DAILY SIMIN Sodium Chloride 1,000 mls @ 999 mls/hr 09/22/21 16:45 09/22/21 16:47 Sod Chlor 0.9% 1000ml Bag IV 09/22/21 17:45 999 mls/hr .Q1H1M SIMIN Administration Sodium Chloride 10 ml 09/22/21 16:39 Sodium Chloride 0.9% 10ml Flush Syringe IV 10/22/21 16:38 NEEDED PRN Maintain IV Site Discontinued Medications Generic Name Dose Route Start Last Admin Trade Name Freq PRN Reason Stop Dose Admin Aspirin 324 mg 09/22/21 16:46 09/22/21 16:47 Aspirin 81mg Chewable Tablet PO 09/22/21 16:47 324 mg ONCE ONE Administration Clopidogrel Bisulfate 300 mg 09/22/21 17:36 Clopidogrel 300mg Tablet PO 09/22/21 17:37 ONCE ONE Morphine Sulfate 2 mg 09/22/21 17:35 Morphine 2mg/Ml Syringe IV 09/22/21 17:36 ONCE ONE Nitroglycerin 1 gm 09/22/21 17:35 Nitroglycerin 1 Gm Ointment TD 09/22/21 17:36 ONCE ONE ORDERS Category Date Time Status Troponin I Q3H Lab 09/22/21 19:45 Ordered Troponin I Q3H Lab 09/22/21 22:45 Ordered - Radiology Data #1 Image(s): Chest Image Reviewed: Yes I have reviewed radiologist's interpretation Preliminary Findings: Normal/NAD - ECG Data Tracing #1 Normal Sinus Rhythm: Yes Ischemic changes: non-specific ST-T wave changes ECG compared to prior tracings: there are no significant changes - Physician Consults Physician Consulted: jon Reason -: Pt condition Medical Decision Narrative: has known cad with stents and has been non-compliant with meds - pt with elevated card enz Chest Pain HPI - General Chief Complaint: Chest Pain Stated Complaint: CHEST PAIN Time Seen by Provider: 09/22/21 17:00 Mode of Arrival: EMS Source of Information: Patient, EMS, Medical Re
--- NOTE | 2021-09-22 17:29 | PC.NURSE ---
Dr Short speaking with Dr Choudhury
--- NOTE | 2021-09-22 17:36 | PC.NURSE ---
paging dr riggins for service admission
--- NOTE | 2021-09-22 18:12 | PC.NURSE ---
[facility]
--- NOTE | 2021-09-22 18:16 | PC.NURSE ---
ATTEMPTED TO CALL REPORT NO ANSWER
--- NOTE | 2021-09-22 18:31 | PC.NURSE ---
ATTEMPTED TO GIVE REPORT NO ANSWER
--- NOTE | 2021-09-22 18:38 | PC.NURSE ---
REPORT CALLED TO FLOOR
--- NOTE | 2021-09-22 19:01 | PC.NURSE ---
PT ARRIVED TO FLOOR VIA WHEEL CHAIR
[2021-09-22 20:43] LABS: Troponin I 0.23 ng/ml (0.00-0.034)
[2021-09-22 23:13] LABS: Troponin I 0.19 ng/ml (0.00-0.034)
[2021-09-23] VITALS (9 sets, daily range): BP systolic 99–118; BP diastolic 51–69; PULSE 59–80; RESP 14–18; TEMP 36.6–37.1; O2SAT 96–98
--- NOTE | 2021-09-23 05:33 | PC.NURSE ---
Patient rested well. Patient states he has not experienced any chest pain this shift. Tele in place NSR with [facility] PAC's.
--- NOTE | 2021-09-23 07:49 | PC.NURSE ---
2nd floor blankbook forwarder Jade and Jaz in house keeping aware that pt belongings were placed in a bag and needed to go to the barn until pt DC due to bed bugs. PT wallet is present in pt pants and pt wanted wallet left in pants. Pt understood that his belonging would be taken to a location for keeping until DC.
[2021-09-23 08:44] LABS: Basophils # 0.1 K/mm3 (0-0.2); Basophils % 2.2 % (0.1-2.0); Eosinophils # 0.2 K/mm3 (0.0-0.4); Eosinophils % 4.3 % (0.1-12.0); Hematocrit 44.3 % (42.0-52.0); Lymphocytes # 1.1 K/mm3 (0.7-4.5); Lymphocytes % 23.3 % (10-50); Mean Corpuscular HGB Conc 31.5 g/dL (31.8-35.4); Mean Corpuscular Hemoglobin 30.1 pg (27.0-31.2); Mean Corpuscular Volume 95.5 fl (80-94); Mean Platelet Volume 8.8 fl (7.4-10.4); Monocytes # 0.4 K/mm3 (0.1-1.0); Monocytes % 8.8 % (1.7-9.3); Neutrophils # 2.9 K/mm3 (1.8-7.8); Neutrophils % 61.4 % (37.0-80.0); Platelet Count 154 K/mm3 (142-424); Red Blood Count 4.64 M/mm3 (4.60-6.20); Red Cell Distribution Width 13.6 % (11.5-17.5); White Blood Count 4.7 K/mm3 (4.8-10.8)
[2021-09-23 08:52] LABS: Chloride 105 mmol/L (98-107); Sodium 137 mmol/L (136-145)
[2021-09-23 08:53] LABS: Potassium 3.5 mmoL/L (3.5-5.1)
[2021-09-23 08:55] LABS: Blood Urea Nitrogen 15 mg/dl (9-20); Creatinine Clearance Estimated 43 mL/min (50-200); Estimated Glomerular Filt Rate 95 ml/min (>60); GFR (African American) 115 ML/MIN (>60)
[2021-09-23 08:56] LABS: Anion Gap 7.5 mEq/L (5-15); Calcium 8.3 mg/dl (8.4-10.2); Carbon Dioxide 28 mmol/L (22.0-30.0); Glucose 126 mg/dl (74-100); Magnesium 1.7 mg/dl (1.6-2.3)
--- NOTE | 2021-09-23 09:07 | HMH.PHAVTE ---
[facility] Pharmacy VTE Monitoring - Patient Demographics Admission date: 09/23/21 Report Date: 09/23/21 Time: 09:07 Allergies/Adverse Reactions: Patient Allergies strawberry Allergy (Verified 09/22/21 20:41) Height: 1.6 m Weight: 45.359 kg Patient Problems: Current Active Problems Tobacco use (Acute) Unstable angina (Acute) Elevated troponin (Acute) - VTE Risk Labs: VTE Related Lab Results Hgb 14.0 g/dL (14.1-18.0) L 09/23/21 07:30 Hct 44.3 % (42.0-52.0) 09/23/21 07:30 Plt Count 154 K/mm3 (142-424) D 09/23/21 07:30 BUN 15 mg/dl (9-20) D 09/23/21 07:30 Creatinine 0.80 mg/dl (0.66-1.25) 09/23/21 07:30 Estimated Creat Clear 43 mL/min (50-200) 09/23/21 07:30 Was VTE Risk Assessment Performed: Yes VTE Score: 3 VTE Risk Level: Low Risk Clinical Trial Participant: No - Prophylaxis VTE Prophylaxis Ordered?: Yes Types of VTE Prophylaxis: TEDS Knee High, Pharmacological Pharmacologic Type: Enoxaparin - VTE Diagnosis Confirmed Treatment or plan recommended: Continue Current Treatment Warfarin counseling provided if indicated?: No Bridge therapy started inpt?: Yes
--- NOTE | 2021-09-23 09:34 | PC.NURSE ---
Patient complained of chest pain, 10/07. Radiates to left arm/shoulder and feels like crushing pain. VS obtained BP 117/69 HR 63 oxygen 97% on room air, RR 15. EKG ordered per protocol. Awaiting respiratory.
--- NOTE | 2021-09-23 09:42 | ECG_ITS ---
APPROVED REPORT Exam: Resting ECG HR:62 bpm ECG Measurements Heart Rate 62 AXES WY 125 P 46 QRSd 83 QRS 13 QT 374 T 43 QTc 378 Conclusion SINUS RHYTHM WITH SINUS ARRHYTHMIA NORMAL ECG UNCONFIRMED REPORT Electronically signed by : Eduardo Lanza MD 09/24/2021 21:46:55
--- NOTE | 2021-09-23 11:39 | HMH.HP ---
*Admission Date: 09/23/21 *Chief complaint: angina *History of present illness: Patient is a 71-year-old white male who was admitted to our service in the emergency room. He presented there with a 2-day history of chest pain, diaphoresis. Patient had recently been taken to the [facility] by Dr. Choudhury and 2 stents deployed. Unfortunately the patient after discharge was not compliant with antiplatelet therapy and did not have his prescription for Plavix filled. Elevated troponins were noted. Findings at most recent trip to director of cardiac cath lab ELIESER II/slow flow down a large LAD from a proximal 50% hazy stenosis Successful percutaneous revascularization of the proximal to mid LAD hemodynamically severe disease reduced to 10% with 1 drug-eluting stent improving ELIESER II to ELIESER-3 flow Persistent moderate stenosis throughout the right coronary artery and circumflex artery as described above Normal ejection fraction Moderately elevated LVEDP Discussed with cardiology service, plan is [facility] tomorrow. [facility] History Medical History: Reports:: Coronary Artery Disease Denies:: Cancer, Diabetes Mellitus Type 1, Diabetes Mellitus Type 2, MRSA *Have you ever received a pneumonia vaccine?: Yes *Have you received a flu vaccine this season?: No Other Surgeries: Yes: No Previous Surgery, Cardiac Catheterization, Cholecystectomy Amputation: No - *Social History Last grade of school completed: Some college Smoking Status: Current every day smoker Tobacco Type: cigarettes # Packs/Day (cigarettes): 1 Alcohol Intake: current Alcohol Intake Frequency:: a few times a month *Occupational Status:: retired Housing: other *Travel in the last 8 weeks: None Family Hx:: Heart Attack Review of Systems - Constitutional Reports lack of energy - Eyes Denies change in vision - ENT Denies change in voice - *Cardiovascular Reports chest pain, Reports chest pain at rest, Reports chest pain with activity, Reports shortness of breath with activity - *Respiratory Reports shortness of breath, Denies coughing up blood - *Gastrointestinal Denies abdominal pain - *Genitourinary Denies difficulty urinating - *Musculoskeletal Reports muscle weakness, Reports radiating pain into limb - Integumentary/Breasts Denies yellowing of the skin - *Neurologic Denies headache(s), Denies seizure-like activity - Psychiatric Denies behavioral changes - Endocrine Denies increased thirst, Denies increased hunger - Hematologic/Lymphatic Denies easy bleeding, Denies easy bruising - Allergic/Immunologic Denies hives Meds Home Medications Medication Instructions Recorded Confirmed Type Aspirin [Aspirin 81mg chewable 81 mg PO DAILY 09/22/21 09/22/21 History tab] Atorvastatin Calcium [Lipitor 40mg 40 mg PO HS 09/22/21 09/22/21 History Tab] Clopidogrel Bisulfate [Clopidogrel 75 mg PO DAILY 09/22/21 09/22/21 History 75mg Tab] lisinopriL [Lisinopril] 2.5 mg PO DAILY 09/22/21 09/22/21 History Allergies Allergy/AdvReac Type Severity Reaction Status Date / Time strawberry Allergy Verified 09/22/21 20:41 Exam Vital signs and Labs for Last 24 Hours: Temp Pulse Resp BP Pulse Ox 98.4 F 63 16 117/69 97 09/23/21 08:00 09/23/21 09:34 09/23/21 09:34 09/23/21 09:34 09/23/21 09:34 Laboratory Results - last 24 hr 09/22/21 16:45: WBC 6.7, RBC 5.12, Hgb 15.4, Hct 48.0, MCV 93.8, MCH 30.1, MCHC 32.0, RDW 13.6, Plt Count 214, MPV 8.9, Neut % (Auto) 63.2, Lymph % (Auto) 21.3, [place] % (Auto) 10.6 H, Eos % (Auto) 3.6, Baso % (Auto) 1.4, Neut # (Auto) 4.2, Lymph # (Auto) 1.4, [place] # (Auto) 0.7, Eos # (Auto) 0.2, Baso # (Auto) 0.1 09/22/21 16:45: Sodium 139, Potassium 4.4, Chloride 104, Carbon Dioxide 27, Anion Gap 12.4, BUN 25 H, Creatinine 0.80, Estimated Creat Clear 43, Estimated GFR 95, Est GFR ( Amer) 115, Glucose 102 H, Calcium 9.6, Troponin I 0.21 H 09/22/21 17:00: SARS-CoV-2 (PCR) Not detected, Influenza A Untype
--- NOTE | 2021-09-23 18:32 | PC.NURSE ---
Patient complained of chest pain during day, EKG obtained, morphine PRN given twice and relieved pain each time. New IV obtained. 20 left forearm. VS stable and patient remained on room air. No other complaints noted.
[2021-09-24] VITALS (28 sets, daily range): BP systolic 97–137; BP diastolic 42–71; PULSE 50–76; RESP 15–20; TEMP 36.5–36.8; O2SAT 92–100; BMI 21.9
--- NOTE | 2021-09-24 | IR_ITS ---
APPROVED REPORT Patient Location: Inpatient Body Corporate Manager: NORM Marie RT (R) PROCEDURES Left heart catheterization Left ventriculogram Selective coronary angiogram Catheter placement in the right common iliac artery with retrograde angiography INDICATION Acute non-ST elevation myocardial infarction, Coronary artery disease, Peripheral artery disease Informed consent was obtained prior to the procedure. COMPLICATIONS None Estimated Blood Loss: Less than 10 ML TECHNIQUE One percent lidocaine was used to anesthetize the right groin. The right femoral artery was accessed via the Seldinger technique. A 4-Welsh sheath was placed in the right femoral artery. The JL-4 and JR-4 catheter was also used to perform left heart catheterization left ventriculogram and selective coronary angiogram. A Glidewire was used to traverse the iliofemoral artery. There was evidence of atheromatous plaque upon catheter traversing. Because of this at the end of the diagnostic heart cath the JR4 catheter was placed in the right common iliac artery and retrograde angiography was performed. At the end the procedure the patient was transferred to the postop putting in stable condition for sheath removal ANGIOGRAPHIC RESULTS The left main artery Normal The left anterior descending artery Has a stent in the proximal segment which is widely patent free of in-stent restenosis. Immediately proximal to the stent there is an eccentric 10 to 20% stenosis. Distal to the stent there is excellent transitioning with additional 20% stenosis The circumflex artery Is nondominant and has mid vessel 30% stenosis The right coronary artery Is a dominant vessel and has a proximal 20% with mid vessel long 30 to 40% stenosis and distal 30% stenosis The BROWNE ventriculogram reveals Normal 65% The left ventricular end-diastolic pressure 10 mmHg Right common internal and external iliac artery are widely patent with mild atheromatous plaque. The right common femoral artery has calcified 50% stenosis IMPRESSION Coronary artery disease as described above Peripheral artery disease as described above PLAN 1. Medical management for both coronary disease and peripheral artery disease 2. Encourage risk factor modification as well as compliance with dual antiplatelet therapy Electronically signed by : Danilo Choudhury MD 09/25/2021 13:57:51
--- NOTE | 2021-09-24 02:16 | PC.NURSE ---
pc from warehouse picker requesting patients belongings, that are bagged up and placed outside of ER entrance, be checked to look for patients billford which patient couldn't find. Billford was located and delivered to Mariama on second floor.
--- NOTE | 2021-09-24 03:25 | PC.NURSE ---
ER staff brought up pt wallet. Wallet was placed in pts room in cabinet per pt request.
--- NOTE | 2021-09-24 04:56 | PC.NURSE ---
Pt has continued to c/o pain in his left/medial chest rating 10/07. MD is aware. 2mg Morphine administered, pt states favorable results. Call light within reach.
[2021-09-24 06:51] LABS: Basophils % 0.7 % (0.1-2.0); Eosinophils # 0.2 K/mm3 (0.0-0.4); Eosinophils % 5.7 % (0.1-12.0); Hematocrit 42.6 % (42.0-52.0); Hemoglobin 13.3 g/dL (14.1-18.0); Lymphocytes # 1.3 K/mm3 (0.7-4.5); Lymphocytes % 31.2 % (10-50); Mean Corpuscular HGB Conc 31.3 g/dL (31.8-35.4); Mean Corpuscular Hemoglobin 30.1 pg (27.0-31.2); Mean Corpuscular Volume 96.2 fl (80-94); Monocytes # 0.5 K/mm3 (0.1-1.0); Monocytes % 11.3 % (1.7-9.3); Neutrophils # 2.1 K/mm3 (1.8-7.8); Platelet Count 157 K/mm3 (142-424); Red Blood Count 4.42 M/mm3 (4.60-6.20); Red Cell Distribution Width 13.7 % (11.5-17.5); White Blood Count 4.2 K/mm3 (4.8-10.8)
[2021-09-24 06:57] LABS: Chloride 106 mmol/L (98-107); Potassium 3.9 mmoL/L (3.5-5.1); Sodium 136 mmol/L (136-145)
[2021-09-24 07:00] LABS: Alanine Aminotransferase 44 U/L (12-78); Albumin Level 3.2 g/dl (3.5-5.0); Albumin/Globulin Ratio 1.1 (1.1-1.8); Alkaline Phosphatase 66 U/L (38-126); Anion Gap 6.9 mEq/L (5-15); Aspartate Amino Transferase 45 U/L (17-59); Bilirubin,Total 0.5 mg/dl (0.2-1.3); Blood Urea Nitrogen 11 mg/dl (9-20); Carbon Dioxide 27 mmol/L (22.0-30.0); Creatinine Clearance Estimated 43 mL/min (50-200); Estimated Glomerular Filt Rate 111 ml/min (>60); GFR (African American) 134 ML/MIN (>60); Globulin 2.8 g/dL (1.3-3.2)
[2021-09-24 07:01] LABS: Calcium 8.1 mg/dl (8.4-10.2); Glucose 111 mg/dl (74-100)
--- NOTE | 2021-09-24 09:04 | INFXCTL.NOTE ---
rounded with patient for morning rounds waiting on cardiology consult. patient stated he couldn't get his eliquis at home, but [facility] no other concerns at this time
--- NOTE | 2021-09-24 09:22 | P.PN_ITS ---
Internal Medicine - PN: Subj *Date: 09/24/21 *Time: :22 Interval history: Patient relays a fairly uneventful night. He did have 1 episode of chest pain which was relieved with morphine. Is slated to go to the Complaint Clerk later today. No chest pain this morning Exam Vital signs and Labs for Last 24 Hours: Temp Pulse Resp BP Pulse Ox 98.0 F 70 16 123/69 97 09/24/21 08:00 09/24/21 08:00 09/24/21 08:00 09/24/21 08:00 09/24/21 08:00 Laboratory Results - last 24 hr 09/24/21 06:30: WBC 4.2 L, RBC 4.42 L, Hgb 13.3 L, Hct 42.6, MCV 96.2 H, MCH 30.1, MCHC 31.3 L, RDW 13.7, Plt Count 157, MPV 9.0, Neut % (Auto) 51.0, Lymph % (Auto) 31.2, [place] % (Auto) 11.3 H, Eos % (Auto) 5.7, Baso % (Auto) 0.7, Neut # (Auto) 2.1, Lymph # (Auto) 1.3, [place] # (Auto) 0.5, Eos # (Auto) 0.2, Baso # (Auto) 0.0 09/24/21 06:30: Sodium 136, Potassium 3.9, Chloride 106, Carbon Dioxide 27, Anion Gap 6.9, BUN 11 D, Creatinine 0.70, Estimated Creat Clear 43, Estimated GFR 111, Est GFR ( Amer) 134, Glucose 111 H, Calcium 8.1 L, Total Bilirubin 0.5, AST 45, ALT 44, Alkaline Phosphatase 66, Total Protein 6.0 L D, Albumin 3.2 L, Globulin 2.8, Albumin/Globulin Ratio 1.1 I & O for Last 24 hours: Intake & Output 09/21/21 09/22/21 09/23/21 09/24/21 23:59 23:59 23:59 23:59 Intake Total 3298 / 3298 1112 / 1112 Output Total 1475 / 2475 2200 / 2200 Balance 1823 / 823 -1088 / -1088 Weight 100 lb - Constitutional no acute distress, thin, cooperative - *Routine HEENT Exam Head: Present: normocephalic Eye: Present: EOMI, PERRL ENT: Present: mucous membranes moist - *Routine Neck Exam Present: supple. Absent: lymphadenopathy - *Routine Respiratory Exam Present: CTA bilaterally - *Routine Cardiovascular Exam Present: RRR - *Routine Abdominal Exam Present: soft, normoactive bowel sounds. Absent: tenderness - *Routine Extremities Exam Absent: cyanosis, clubbing, edema - *Routine Skin Exam Present: warm. Absent: rash - *Routine Neurological Exam Present: alert, oriented X3 Assessment and Plan (1) Elevated troponin Status: Acute Category: Medical Code(s): R77.8 - Other specified abnormalities of plasma proteins (2) Atherosclerotic heart disease Status: Chronic Category: Medical Code(s): I25.10 - Atherosclerotic heart disease of [place] coronary artery without angina pectoris (3) Chest pain Status: Acute Category: Medical Code(s): R07.9 - Chest pain, unspecified - Assessment and plan all Dx Assessment and Plan for all problems:: Patient is slated for Complaint Clerk today. Will await report.
--- NOTE | 2021-09-24 09:41 | HMH.CNCARD ---
History of Present Illness Consult date: 09/24/21 Requesting physician: Marco Antonio Cuba Consult reason: chest pain Chief complaint: chest pain, nstemi Additional Medical History:: CAD Current 1 ppd smoker History of present illness: 71 year old white male with past medical hx of CAD and current 1 ppd smoker presented to ER on 09/22 with complaint of midsternal chest pain, progressive and worsening x 2 days, worse on day of presentation with soa and diaphoresis. patient had LHC 08/28 and received stent to mid LAD. was noted to have persistent, moderate stenosis throughout RCA and Circ. EF was normal and LVEDP was moderately elevated. patient reports he did not continue plavix due to cost. upon presentation to ER trop was noted to be 0.21 which has since trended down. EKG showed nsr with no ischemic changes noted. [facility] History Medical History: Reports:: Coronary Artery Disease Denies:: Cancer, Diabetes Mellitus Type 1, Diabetes Mellitus Type 2, MRSA *Have you ever received a pneumonia vaccine?: Yes *Have you received a flu vaccine this season?: No Other Surgeries: Yes: No Previous Surgery, Cardiac Catheterization, Cholecystectomy Amputation: No - *Social History Last grade of school completed: Some college Smoking Status: Current every day smoker Tobacco Type: cigarettes # Packs/Day (cigarettes): 1 Alcohol Intake: current Alcohol Intake Frequency:: a few times a month *Occupational Status:: retired Housing: other *Travel in the last 8 weeks: None Family Hx:: Heart Attack Meds Home Medications Medication Instructions Recorded Confirmed Type Aspirin [Aspirin 81mg chewable 81 mg PO DAILY 09/22/21 09/22/21 History tab] Atorvastatin Calcium [Lipitor 40mg 40 mg PO HS 09/22/21 09/22/21 History Tab] Clopidogrel Bisulfate [Clopidogrel 75 mg PO DAILY 09/22/21 09/22/21 History 75mg Tab] lisinopriL [Lisinopril] 2.5 mg PO DAILY 09/22/21 09/22/21 History Allergies Allergy/AdvReac Type Severity Reaction Status Date / Time strawberry Allergy Verified 09/22/21 20:41 Exam Vital signs and Labs for Last 24 Hours: Temp Pulse Resp BP Pulse Ox 98.0 F 70 16 123/69 97 09/24/21 08:00 09/24/21 08:00 09/24/21 08:00 09/24/21 08:00 09/24/21 08:00 Laboratory Results - last 24 hr 09/24/21 06:30: WBC 4.2 L, RBC 4.42 L, Hgb 13.3 L, Hct 42.6, MCV 96.2 H, MCH 30.1, MCHC 31.3 L, RDW 13.7, Plt Count 157, MPV 9.0, Neut % (Auto) 51.0, Lymph % (Auto) 31.2, [place] % (Auto) 11.3 H, Eos % (Auto) 5.7, Baso % (Auto) 0.7, Neut # (Auto) 2.1, Lymph # (Auto) 1.3, [place] # (Auto) 0.5, Eos # (Auto) 0.2, Baso # (Auto) 0.0 09/24/21 06:30: Sodium 136, Potassium 3.9, Chloride 106, Carbon Dioxide 27, Anion Gap 6.9, BUN 11 D, Creatinine 0.70, Estimated Creat Clear 43, Estimated GFR 111, Est GFR ( Amer) 134, Glucose 111 H, Calcium 8.1 L, Total Bilirubin 0.5, AST 45, ALT 44, Alkaline Phosphatase 66, Total Protein 6.0 L D, Albumin 3.2 L, Globulin 2.8, Albumin/Globulin Ratio 1.1 I & O for Last 24 hours: Intake & Output 09/21/21 09/22/21 09/23/21 09/24/21 23:59 23:59 23:59 23:59 Intake Total 3298 / 3298 1112 / 1112 Output Total 1475 / 2475 2200 / 2200 Balance 1823 / 823 -1088 / -1088 Weight 100 lb - Constitutional no acute distress - *Routine Cardiovascular Exam Present: RRR - *Routine Extremities Exam Absent: cyanosis, clubbing, edema - *Routine Neurological Exam Present: alert, oriented X3 Review of Systems - *Cardiovascular Reports chest pain, Reports excessive sweating, Reports shortness of breath when lying down - *Neurologic Denies behavioral changes, Denies headache(s), Denies seizure-like activity Assessment and Plan (1) Elevated troponin Status: Acute Category: Medical Code(s): R77.8 - Other specified abnormalities of plasma proteins (2) Atherosclerotic heart disease Status: Chronic Category: Medical Code(s): I25.10 - Atherosclerotic heart disease of [place] coronary
--- NOTE | 2021-09-24 11:41 | PC.NURSE ---
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
--- NOTE | 2021-09-24 17:30 | PC.NURSE ---
Right groin site from heart cath no issues. Dressing clean, dry, intact. Pulses good and VS stable. Patient remained on room air with no complications. No complaints of chest pain.
[2021-09-25] VITALS: BP 131/72; PULSE 55; PULSE 68; RESP 15; TEMP 37; O2SAT 98
[2021-09-25 04:00] VITALS: BP 126/63; PULSE 50; PULSE 61; RESP 16; TEMP 36.9; O2SAT 96
[2021-09-25 04:51] VITALS: BMI 23.0
[2021-09-25 04:52] VITALS: BMI 22.9
--- NOTE | 2021-09-25 05:32 | PC.NURSE ---
pt has rested well t/o shift, has not complained of CP or SOA, has been NSR to SB on telemetry, HR has 55-71, SBP 126-131, using urinal independently, 950 mL out so far this shift
[2021-09-25 06:40] LABS: Basophils # 0.1 K/mm3 (0-0.2); Eosinophils # 0.3 K/mm3 (0.0-0.4); Eosinophils % 5.7 % (0.1-12.0); Hematocrit 45.9 % (42.0-52.0); Hemoglobin 14.1 g/dL (14.1-18.0); Lymphocytes # 0.9 K/mm3 (0.7-4.5); Lymphocytes % 20.7 % (10-50); Mean Corpuscular HGB Conc 30.7 g/dL (31.8-35.4); Mean Corpuscular Hemoglobin 29.9 pg (27.0-31.2); Mean Corpuscular Volume 97.5 fl (80-94); Mean Platelet Volume 8.9 fl (7.4-10.4); Monocytes # 0.5 K/mm3 (0.1-1.0); Neutrophils # 2.8 K/mm3 (1.8-7.8); Neutrophils % 62.5 % (37.0-80.0); Platelet Count 152 K/mm3 (142-424); Red Blood Count 4.71 M/mm3 (4.60-6.20); Red Cell Distribution Width 13.7 % (11.5-17.5); White Blood Count 4.5 K/mm3 (4.8-10.8)
[2021-09-25 06:56] LABS: Chloride 105 mmol/L (98-107)
[2021-09-25 06:57] LABS: Potassium 4.3 mmoL/L (3.5-5.1); Sodium 136 mmol/L (136-145)
[2021-09-25 07:00] LABS: Anion Gap 5.3 mEq/L (5-15); Blood Urea Nitrogen 11 mg/dl (9-20); Calcium 8.6 mg/dl (8.4-10.2); Carbon Dioxide 30 mmol/L (22.0-30.0); Creatinine Clearance Estimated 56 mL/min (50-200); Estimated Glomerular Filt Rate 95 ml/min (>60); GFR (African American) 115 ML/MIN (>60); Glucose 104 mg/dl (74-100)
[2021-09-25 08:00] VITALS: BP 150/66; PULSE 62; PULSE 64; RESP 14; TEMP 36.7; O2SAT 98
--- NOTE | 2021-09-25 09:21 | PC.NURSE ---
morning rounds done with md. patient is sitting up on side of bed. no concerns noted. educated on importance on getting medications at discharge. if cleared from cardiology possible dc today
--- NOTE | 2021-09-25 11:36 | HMH.PNCARD ---
Subjective Date: 09/25/21 Time: 08:00 Principal diagnosis: unstable angina Interval history: s/p LHC yesterday, stents widely patent. Patient reports feeling good, denies cp or soa. Exam Vital signs and Labs for Last 24 Hours: Temp Pulse Resp BP Pulse Ox 98.1 F 62 14 150/66 H 98 09/25/21 08:00 09/25/21 08:00 09/25/21 08:00 09/25/21 08:00 09/25/21 08:00 Laboratory Results - last 24 hr 09/25/21 06:21: WBC 4.5 L, RBC 4.71, Hgb 14.1, Hct 45.9, MCV 97.5 H, MCH 29.9, MCHC 30.7 L, RDW 13.7, Plt Count 152, MPV 8.9, Neut % (Auto) 62.5, Lymph % (Auto) 20.7, [place] % (Auto) 10.0 H, Eos % (Auto) 5.7, Baso % (Auto) 1.0, Neut # (Auto) 2.8, Lymph # (Auto) 0.9, [place] # (Auto) 0.5, Eos # (Auto) 0.3, Baso # (Auto) 0.1 09/25/21 06:21: Sodium 136, Potassium 4.3, Chloride 105, Carbon Dioxide 30, Anion Gap 5.3, BUN 11, Creatinine 0.80, Estimated Creat Clear 56, Estimated GFR 95, Est GFR ( Amer) 115, Glucose 104 H, Calcium 8.6 I & O for Last 24 hours: Intake & Output 09/22/21 09/23/21 09/24/21 09/25/21 23:59 23:59 23:59 23:59 Intake Total 3298 / 3298 1592 / 1592 1329 / 1329 Output Total 1475 / 2475 3550 / 4150 2275 / 2275 Balance 1823 / 823 -1958 / -2558 -946 / -946 Weight 100 lb 129 lb 9 oz - *Routine Respiratory Exam Present: CTA bilaterally - *Routine Cardiovascular Exam Present: RRR - *Routine Neurological Exam Present: alert, oriented X3 Progress Note: A&P (1) Elevated troponin Status: Acute (2) Atherosclerotic heart disease Status: Chronic (3) Chest pain Status: Acute (4) CAD (coronary artery disease) Status: Acute (5) NSTEMI (non-ST elevated myocardial infarction) Status: Acute (6) Unstable angina Status: Acute Assessment and Plan for All Diagnoses:: Unstable angina - stenting to mid LAD 08/28- medically non compliant with plavix. Persistent moderate stenosis throughout rca and circ. - resume aspirin, plavix. [facility] today 09/24- stents widely patent. CAD -Continue aspirin, plavix, high dose statin. Add coreg 3.12 BID Tobacco use -counseled on smoking cessation CV summary: CV stable for dc home. please dc with following medications. Please have follow up in office in 2 weeks for recheck. Aspirin 81mg QD Plavix 75mg QD Atorvastatin 40mg QD Coreg 3.12 BID Imdur 30mg QD
[2021-09-25 12:00] VITALS: BP 169/88; PULSE 60; PULSE 61; RESP 16; TEMP 36.8; O2SAT 98; BMI 218857.2
--- NOTE | 2021-09-25 12:41 | PC.NURSE ---
ROUNDED ON PATIENT NO CONCERNS VOICED. ASKED IF THEY HAD ANY QUESTIONS REGARDING MEDICATION. STATED THEY FELT THEY HAD A GOOD GRASP OF WHAT HE IS GETTING. UNDERSTAND NEED TAKE MEDS ONCE DISCHARGED. ENCOURAGED TO RING OUT NEEDED. DRINK GIVEN TO PATIENT.
--- NOTE | 2021-09-25 13:09 | HMH.DCSUM ---
General - General Admission date:: 09/22/21 Discharge date: 09/25/21 HPI HPI: Patient is a 71-year-old white male who was admitted to our service in the emergency room. He presented there with a 2-day history of chest pain, diaphoresis. Patient had recently been taken to the [facility] [address] [address] Choudhury and 2 stents deployed. Unfortunately the patient after discharge was not compliant with antiplatelet therapy and did not have his prescription for Plavix filled. Elevated troponins were noted. 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 Hospital Course Hospital Course: Patient is a 71-year-old white male who was admitted to our service in the emergency room. He presented there with a 2-day history of chest pain, diaphoresis. Patient had recently been taken to the [employer] [address] [address] Choudhury and 2 stents deployed. Unfortunately the patient after discharge was not compliant with antiplatelet therapy and did not have his prescription for Plavix filled. Elevated troponins were noted. 09/24/2021 cardiac catheterization: ANGIOGRAPHIC RESULTS The left main artery Normal The left anterior descending artery Has a stent in the proximal segment which is widely patent free of in-stent restenosis. Immediately proximal to the stent there is an eccentric 10 to 20% stenosis. Distal to the stent there is excellent transitioning with additional 20% stenosis The circumflex artery Is nondominant and has mid vessel 30% stenosis The right coronary artery Is a dominant vessel and has a proximal 20% with mid vessel long 30 to 40% stenosis and distal 30% stenosis The BROWNE ventriculogram reveals Normal 65% The left ventricular end-diastolic pressure 10 mmHg Right common internal and external iliac artery are widely patent with mild atheromatous plaque. The right common femoral artery has calcified 50% stenosis IMPRESSION Coronary artery disease as described above Peripheral artery disease as described above PLAN 1. Medical management for both coronary disease and peripheral artery disease 2. Encourage risk factor modification as well as compliance with dual antiplatelet therapy Electronically signed by : Danilo Choudhury MD Cardiology has seen and recommends Unstable angina - stenting to mid LAD 5/31- medically non compliant with plavix. Persistent moderate stenosis throughout rca and circ. - resume aspirin, plavix. [facility] today 09/24- stents widely patent. CAD -Continue aspirin, plavix, high dose statin. Add coreg 3.12 BID Tobacco use -counseled on smoking cessation CV summary: CV stable for dc home. please dc with following medications. Please have follow up in office in 2 weeks for recheck. Aspirin 81mg QD Plavix 75mg QD Atorvastatin 40mg QD Coreg 3.12 BID Imdur 30mg QD Tobacco abuse Tobacco cessation encouraged Patient states he will discuss with PCP at next appointment Chest pain CAD (coronary artery disease) He will continue aspirin, Plavix, atorvastatin, Coreg [facility] NSTEMI (non-ST elevated myocardial infarction) Unstable angina Atherosclerotic heart disease He was noncompliant with Plavix [facility] Cardiac catheterization showed widely patent stents 71-year-old male patient sitting up in bed denies any chest pain or shortness of breath during the night. Denies any concerns/needs/questions at present, discussed discharge home patient is agr
--- NOTE | 2021-09-25 13:46 | PC.NURSE ---
Meds to beds paperwork [facility]
--- NOTE | 2021-09-25 14:17 | SW/DCPLANNER ---
Addendum entered by Yoly Scott 09/25/21 15:05: Patient has refused home health services at this time. Original Note: Per nursing staff patient does not have transportation home. Patient stated that he does not have transportation and generally walks or hitch-hikes a ride. I will arrange transportation through [employer] and I will use [employer] to provide this patient $14 for ride home ($1/mile).
--- NOTE | 2021-09-25 15:05 | HMH.PHAINT ---
09/25/21 DISCHARGE MEDICATION COUNSELING COMPLETED PATIENT MEDS BEING S[facility] BY [facility]OR ELL[facility]. UNABLE TO GET MEDS FILLED AT [facility] DUE TO COST. OBTAINED APPROVAL FOR PATIENT TO USE BRIL[facility]TA UNTIL PLAVIX ARRIVES FROM THE [facility]. OBTAINED SAMPLE OF BRILINTA FROM DR. NATARAJAN'S OFFICE. GAVE SAMPLE TO PATIENT WITH INSTRUCTIONS TO TAKE 1 TABLET BY 2 TIMES DAILY STARTING TOMORROW HE HAS HAD PLAVIX TODAY ALREADY. CONTINUE WITH [facility] U[facility]IL [facility]IVES FROM [facility]. REITERATED THE IMPORTANCE OF TAKING HIS MEDICATIONS ORDERED AND FOR CONTINUED FOLLOW UP WITH CARDIOLOGY AND PRIMARY CARE.
--- NOTE | 2021-09-25 15:19 | PC.NURSE ---
discharge instructions given now that pt has medications [facility] out w[facility]. PIV taken out. All questions answered. This RN verbalized the importance of following up with not only MD Choudhury, but the [facility] since he hasn't been [facility] since 2012. Pt verbalized understanding. Pt currently waiting on [facility] bus at this time.
== END 2021-09-25 17:41 | disposition home or self-care (01) | DRG 282 ==
LOC: ER 17:49 → 2ND 18:19
PROVIDERS: Internal Medicine; Admitting Provider Family Medicine; Emergency Provider Emergency Medicine; Visit Provider Family Medicine
PROC: 4A023N7 Measurement of Cardiac Sampling and Pressure, Left Heart, Percutaneous Approach (ICD-10-PCS; principal; 2021-09-24 09:45)
DX: I21.4 Non-ST elevation (NSTEMI) myocardial infarction (principal); I25.110 Atherosclerotic heart disease of native coronary artery with unstable angina pectoris; I10 Essential (primary) hypertension; Z95.5 Presence of coronary angioplasty implant and graft; F17.210 Nicotine dependence, cigarettes, uncomplicated; I73.9 Peripheral vascular disease, unspecified; Z91.14 Patient's other noncompliance with medication regimen
CPT/HCPCS: 36415; 71045; 80048; 80053; 83735; 84484; 85025; 93005; 93458; 99152; 99153; 99285; C1725; C1769; C9803; G0278; J1644; Q9967; U0003; U0005

== ENCOUNTER 2021-10-09 16:30 | Emergency (ER) | payer MEDICARE, OTHER, SELFPAY ==
[2021-10-09 16:06] VITALS: BP 123/87; PULSE 88; RESP 18; TEMP 36.9; O2SAT 97; BMI 17.6
--- NOTE | 2021-10-09 16:09 | HMH.EDGIBL ---
ED Disposition Clinical Impression: Lower GI bleed Disposition: Home, Self-Care Condition on Discharge: Good Instructions: Gastrointestinal Bleeding Additional Instructions: follow up PCP, return for worse or any concerns Referrals: David Edwards MD [Staff Physician] - - Critical Care Critical Care Time: No Attestation: On , the high probability of a clinically significant, sudden or life threatening deterioration of the following system(s) required my full and direct attention, intervention and personal management. The time I documented below is in addition to time spent performing reported procedures but includes the following listed in this critical care notation. Medical Decision Making - Medical Records Medical records reviewed: Yes: I reviewed the patient's medical records. - Todd Inquiry Pt receiving controlled substance: No - Lab Data Lab Results 10/09/21 16:00: WBC 5.6, RBC 4.75, Hgb 14.0 L, Hct 44.9, MCV 94.5 H, MCH 29.5, MCHC 31.2 L, RDW 13.6, Plt Count 189, MPV 8.4, Neut % (Auto) 63.9, Lymph % (Auto) 20.5, [place] % (Auto) 11.3 H, Eos % (Auto) 3.4, Baso % (Auto) 0.9, Neut # (Auto) 3.6, Lymph # (Auto) 1.2, [place] # (Auto) 0.6, Eos # (Auto) 0.2, Baso # (Auto) 0.1 10/09/21 16:00: Sodium 140, Potassium 3.6, Chloride 107, Carbon Dioxide 29, Anion Gap 7.6, BUN 10, Creatinine 0.70, Estimated GFR 111, Est GFR ( Amer) 134, Glucose 133 H, Calcium 9.2, Total Bilirubin 0.5, AST 53, ALT 42, Alkaline Phosphatase 77, Total Protein 6.8, Albumin 3.9, Globulin 2.9, Albumin/Globulin Ratio 1.3 10/09/21 16:05: Stool Occult Blood Negative Result diagrams: 10/09/21 16:00 10/09/21 16:00 Orders (Tests/Meds): ED MEDICATIONS Discontinued Medications Generic Name Dose Route Start Last Admin Trade Name Freq PRN Reason Stop Dose Admin Ondansetron HCl 8 mg 10/09/21 16:08 10/09/21 16:37 Ondansetron 4mg/2ml Vial IV 10/09/21 16:09 8 mg ONCE ONE Administration - Reevaluation(s) Time: 16:58 (reeval, appears well, no bleeding here, ok with plan to f/u PCP) GI Bleed HPI - General Stated complaint: Dark stool Time Seen by Provider: 10/09/21 16:09 - History of Present Illness HPI Narrative: c/o dark blood instool intermittent few days h/o cad recent stent on antiplatelet Onset (ago): day(s) Consistency: intermittent Severity: mild Relieving factors: none Exacerbating factors: none Associated symptoms: nausea - Related Data Home Medications Medication Instructions Recorded Confirmed Aspirin [Aspirin 81mg chewable 81 mg PO DAILY 09/22/21 09/22/21 tab] Atorvastatin Calcium [Lipitor 40mg 40 mg PO HS 09/22/21 09/22/21 Tab] Previous Rx's Medication Instructions Recorded Clopidogrel Bisulfate [Clopidogrel 75 mg PO DAILY 30 Days #30 tab 09/25/21 75mg Tab] Isosorbide Mononitrate [Imdur 30mg 30 mg PO DAILY 30 Days #30 tab 09/25/21 ER tablet] carvediloL [Coreg 3.125mg 3.125 mg PO BID 30 Days #60 tab 09/25/21 Tablet] Allergies Allergy/AdvReac Type Severity Reaction Status Date / Time strawberry Allergy Verified 09/22/21 20:41 [facility] History - Hepatitis A Screen Attestation statement:: This patient has been screened for Hepatitis A risk factors. 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 He has been for 6 years. Has good support from jessie
[2021-10-09 16:23] LABS: Occult Blood,Stool Negative (Negative)
[2021-10-09 16:28] LABS: Basophils # 0.1 K/mm3 (0-0.2); Basophils % 0.9 % (0.1-2.0); Eosinophils # 0.2 K/mm3 (0.0-0.4); Eosinophils % 3.4 % (0.1-12.0); Hematocrit 44.9 % (42.0-52.0); Lymphocytes # 1.2 K/mm3 (0.7-4.5); Lymphocytes % 20.5 % (10-50); Mean Corpuscular HGB Conc 31.2 g/dL (31.8-35.4); Mean Corpuscular Hemoglobin 29.5 pg (27.0-31.2); Mean Corpuscular Volume 94.5 fl (80-94); Mean Platelet Volume 8.4 fl (7.4-10.4); Monocytes # 0.6 K/mm3 (0.1-1.0); Monocytes % 11.3 % (1.7-9.3); Neutrophils # 3.6 K/mm3 (1.8-7.8); Neutrophils % 63.9 % (37.0-80.0); Platelet Count 189 K/mm3 (142-424); Red Blood Count 4.75 M/mm3 (4.60-6.20); Red Cell Distribution Width 13.6 % (11.5-17.5); White Blood Count 5.6 K/mm3 (4.8-10.8)
[2021-10-09 16:32] LABS: Chloride 107 mmol/L (98-107); Potassium 3.6 mmoL/L (3.5-5.1); Sodium 140 mmol/L (136-145)
[2021-10-09 16:35] LABS: Alanine Aminotransferase 42 U/L (12-78); Albumin Level 3.9 g/dl (3.5-5.0); Albumin/Globulin Ratio 1.3 (1.1-1.8); Alkaline Phosphatase 77 U/L (38-126); Anion Gap 7.6 mEq/L (5-15); Aspartate Amino Transferase 53 U/L (17-59); Bilirubin,Total 0.5 mg/dl (0.2-1.3); Blood Urea Nitrogen 10 mg/dl (9-20); Carbon Dioxide 29 mmol/L (22.0-30.0); Estimated Glomerular Filt Rate 111 ml/min (>60); GFR (African American) 134 ML/MIN (>60); Globulin 2.9 g/dL (1.3-3.2); Total Protein,Serum 6.8 g/dl (6.3-8.2)
[2021-10-09 16:36] LABS: Calcium 9.2 mg/dl (8.4-10.2); Glucose 133 mg/dl (74-100)
[2021-10-09 17:40] VITALS: BP 127/87; PULSE 70; RESP 18; TEMP 37.1; O2SAT 98
== END 2021-10-09 17:40 | disposition home or self-care (01) ==
PROVIDERS: Emergency Provider Emergency Medicine
DX: K92.2 Gastrointestinal hemorrhage, unspecified (principal); K92.1 Melena; I25.10 Atherosclerotic heart disease of native coronary artery without angina pectoris; Z72.0 Tobacco use; R11.0 Nausea; Z79.02 Long term (current) use of antithrombotics/antiplatelets
CPT/HCPCS: 80053; 82272; 85025; 96374; 99284; G0328; J2405